=== PATIENT | female | born 1950 | race Caucasian/White ===

== ENCOUNTER 2016-06-16 01:32 | Inpatient (IN) | payer OTHER, MEDICARE ==
[~2016-06-16] VITALS: Ht 165.1 cm; Wt 95.7 kg
[~2016-06-16 01:32] MED LIST: ACCUPRIL40 M1 PO; ALEVE220 MG PO; COLACE100 M1 PO; COUMADIN 3 MG TA3 MG PO; COUMADIN5 M2 PO; DOCUSATE SODIU100 MG PO; FLEXERIL10 MG PO; HYDROCHLOROTHIA25 M1 PO; HYDRODIURIL 2525 MG PO; K-DUR 20MEQ TA20 MEQ PO; MIRALAX17 GM PO; MOTRIN800 MG PO; MULTI-DAY VITA1 EACH PO; MULTIVITAMIN1 TAB PO; OXYCODONE HCL5 M1 PO; PERCOCET 325 MG1 TA2 PO; PERCOCET 5-3251 EACH PO; POTASSIUM CHLO20 ME2 PO; QUINAPRIL40 MG PO; RW; TYLENOL325 M1 PO; VITAMIN D1000 UNIT PO
--- NOTE | 2016-06-16 17:49 | Admission Core Measures ---
Admission Meds I reviewed the following Meds: Current Medications Sig/Naveed Start time Last Medication Dose Stop Time Status Admin Cefazolin Sodium 2,000 MG ONCE 06/16 0000 NR (Kefzol-Ancef Inj) 06/16 2359 Dextrose/Sodium 1,000 ML .[id number] 06/16 174 UNVr Chloride (D5W-1/2 Normal Saline 1000ML) Docusate Sodium 100 MG DAILY NEEDED PRN 06/16 174 UNVr (Colace) Hydrochlorothiazide 25 MG DAILY 06/17 1000 AC (Hydrodiuril) Hydromorphone HCl 2 MG Q4P PRN 06/16 174 UNVr (Dilaudid) Hydromorphone HCl 4 MG Q4P PRN 06/16 174 UNVr (Dilaudid) Lisinopril 40 MG DAILY 06/17 1000 AC (Prinivil) Ondansetron HCl 4 MG Q6P PRN 06/16 174 UNVr (Zofran) Potassium Chloride 20 MEQ DAILY 06/17 1000 AC (K-Dur) Promethazine HCl 12.5 MG Q6P PRN 06/16 174 UNVr (Phenergen) 06/23 174 Ramelteon 8 MG AT BEDTIME NEED.. 06/16 174 UNVr (Rozerem) Warfarin Sodium 5 MG ONCE ONE 06/16 1744 UNVr (Coumadin) 06/16 174 Acute Coronary Syndrome Inclusion Criteria ACS Diagnosis No Inpatient Core Measures LDL Reminder: If No, please order W/I first 24hr of stay Congestive Heart Failure Inclusion Criteria CHF Diagnosis No Cerebrovascular accident Inclusion Criteria CVA/TIA Diagnosis No Inpatient Core Measures Bedside Swallow Eval Reminder: If BSE failed, place ST order Antithrombotic Reminder: Order Antithrombotic Medication by end of day 2 Antithrombotic Reminder: Document Reason Antithrombotic Not ordered by end of day 2 AFIB/Flutter Reminder: If Present, add to problem list AFIB/Flutter Reminder: Order Anticoag Medication for pts with AFIB/Flutter Atherosclerosis Reminder: If Present, add to problem list LDL Reminder: If No, please order W/I first 24hr of stay PT Order Reminder: If No, please order Venous thromboembolism Inpatient Core Measures VTE Risk Factors: Age > 40, Obesity, Surgery VTE Prophylaxis Ordered Inpt Mech & Pharm No Mech VTE prophylaxis d/t No contraindications No VTE Pharm Prophylaxis d/t No contraindications Inclusion Criteria - Per Current guidelines, there needs to be overlap - treatment for the first 5 days of Warfarin therapy. - Parenteral Anticoagulation (IV or SC) needs to be - given along with Warfarin therapy. VTE Diagnosis No VTE Type NONE VTE Confirmed by (Test) NONE Problem List As ranked by this Provider includes Assessment & Plan 1. Osteoarthritis of right knee HOME MEDS Home Med List Hydrochlorothiazide 25 MG TABLET 1 TAB PO DAILY BP (Reported) Potassium Chloride 20 MEQ TAB.ER.PRT 1 TAB PO DAILY SUPPLEMENT (Reported) Quinapril HCl (Accupril) 40 MG TABLET 1 TAB PO BID BP (Reported)
--- NOTE | 2016-06-16 18:18 | Operative Report ---
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 Tourniquet time was 2 hours and 13 minutes Operative Indication: This is a 64-year-old obese lady that had a right total knee arthroplasty performed 4 months ago. At the time her patella dislocated despite a lateral release area we did a medial capsular reefing and the patella was stable following this. However she began dislocating 4 weeks ago. X-rays revealed a lateral dislocation and she was admitted for possible knee component revision versus a Coral osteotomy Operative/Procedure Note Note: After satisfactory spinal anesthesia been obtain the patient's right lower extremity was prepped and draped in usual sterile fashion. She received preoperative antibiotics. A pneumatic tourniquet was used above the knee and leg max was used to support the leg throughout the case. The leg was exsanguinated with a sterile Esmarch. Tourniquet was then inflated to pressure 350 mmHg. The prior incision was used and taken down through skin and subcutaneous tissue. Generous medial and lateral skin flaps were developed. All bleeders were cauterized with the Bovie. A medial parapatellar incision was performed and the patella was dislocated laterally. We inspected the tibial bearing. Patient had slight laxity medially and laterally and it was decided that the patella might be more stable with a larger implant. Yazan Phelan re moved the tibial bearing and a trial reduction was performed using a 16 mm tibial bearing. There was still slight laxity and we proceeded to put in a 19 mm tibial bearing. Despite this tightening of the knee capsule the patella still dislocated laterally in 30 of flexion. Yazan Phelan then performed a generous lateral release. We also removed any scar tissue laterally. Despite this the patella still dislocated easily laterally. It was decided that point to proceed with a Coral osteotomy. The incision was extended distally for an additional 10 cm. The musculature was dissected off of the lateral aspect of the tibial shaft using electrocautery and then with a periosteal elevator. A large elevator was then placed subperiosteally to protect the musculature. A anterior compartment fasciotomy was also performed. A tibial tuberosity pin was placed in a vertical perpendicular fashion into the tibial tuberosity. The tuberosity pin guide was then placed over the pin. The pin guide was placed horizontally in line with the femoral condyles. The 45 cutting guide was then assembled and the cutting block was secured along the aspect of the patella with to break away pins. When the cutting block was positioned in the acceptable angle a collared breakaway pin was inserted. The position of the cutting block was checked several times with the saw blade exit indicator. A sagittal saw was then used to perform the osteotomy. The proximal cuts were then accomplished with a 10 mm sagittal saw. A osteotome was then used to elevate the osteotomy. A periosteal hinge was remaining distally and the graft was easily shifted laterally and anteriorly for a distance of 1.5 cm. Using image intensification 2 cannulated screws were then placed into the graft and good solid fixation was obtained. The images were again checked with the C-arm. The knee was then put through a range of motion and the patella remained centralized. 2 batches of Arthrex quick set cement were then placed along the lateral aspect of the graft. A medial parapatellar incision was closed with 0 Vicryl sutures drain was placed in the lateral gutter after the knee had been copiously irrigated the patient received transamic acid in 2 doses. The tourniquet was released and electrocautery was used to cauterize any bleeding points. The deep tissues were closed with 0 Vicryl and the skin was closed with subcuticular 2-0 Vicryl sutures and then surgical jeanne. Blood loss approximately 150 mL dry sterile dressing was applied over the incision and she was returned to the recovery room in excellent condition Discharge Disposition: PACU
--- NOTE | 2016-06-16 19:36 | NUR ---
PACU NOTE PT ARRIVED TO FLOOR AT THIS TIME FROM PACU, VSS DENIES PAIN AT THIS TIME, A/O X 3 ON 2L 100%, TURNED DOWN TO 1L AT THIS TIME 98%, WILL RECHECK. DENIES NAUSEA AT THIS TIME. ONQ PUMP TO RIGHT KNEE GOING AT 10ML/HR. RUDI WRAP TO RIGHT LEG CD+I, ICE IN PLACE, IMMOBILIZER IN PLACE. ALP APPLIED TO LEFT LEG. SKIN INTACT NO EDEMA, LUNGS CLEAR DRY COUGH, C/O DRY MOUTH, OFFERED ICE AND WATER AT THIS TIME. BURGESS DRAINING CLEAR YELLOW URINE. JPD TO RIGHT KNEE, BLOODY DRAINAGE APPROX 50 CC. STATING NO PAIN CURRENTLY BUT STATES " IM SCARED TO TAKE DILAUDUD IF I DO HAVE PAIN, ROHITH NEVER HAD IT BEFORE" PT STATES THAT SHE HAS TAKEN TYLENOL FOR LAST KNEE REPLACEMENTS WHICH WORKED WELL FOR HER, AND TAKEN PERCOCET ONLY "IF REALLY NEEDED" CALL PLACED TO SURGICAL PA AT THIS TIME TO CHANGE MEDS. ORIENTED TO ROOM AND USE OF CALL MEDINA WILL CONTINUE TO MONITOR
[2016-06-16 19:40] VITALS: BP 136/80
--- NOTE | 2016-06-16 19:48 | PN- Orthopedic ---
Subjective Subjective: Post op check Awake, alert Pain tolerable No nausea Does not want IV narcotics or po dilaudid - only tylenol or percocet Objective Vital Signs and I&Os VSS, afebrile APOLLO: serosang jensen: good output Physical Exam: General: alert and oriented times three Chest: clear anteriorly bilaterally, RRR Abd: soft, good bs Ext: warm, no edema, positive sensate, no calf tenderness Wound: dressed, dry, knee immobilizer in place, on Q in place Current Medications: Current Medications Sig/Naveed Start time Last Medication Dose Route Stop Time Status Admin Acetaminophen 650 MG Q4P PRN 06/16 1944 AC PO Cefazolin Sodium 2,000 MG ONCE 06/16 0000 DC IV 06/16 2359 Dextrose/Sodium 1,000 ML .[id number] 06/16 174 AC Chloride IV Docusate Sodium 100 MG DAILY NEEDED PRN 06/16 174 AC PO Hydrochlorothiazide 25 MG DAILY 06/17 1000 DC PO Hydrochlorothiazide 25 MG DAILY 06/17 1000 AC PO Hydromorphone HCl 2 MG Q4P PRN 06/16 174 DC PO Hydromorphone HCl 4 MG Q4P PRN 06/16 174 DC PO Lisinopril 40 MG DAILY 06/17 1000 DC PO Lisinopril 40 MG DAILY 06/17 1000 AC PO Ondansetron HCl 4 MG Q6P PRN 06/16 174 AC IV Oxycodone/ 1 TAB Q4P PRN 06/16 194 AC Acetaminophen PO Oxycodone/ 2 TAB Q4P PRN 06/16 194 AC Acetaminophen PO Potassium Chloride 20 MEQ DAILY 06/17 1000 DC PO Potassium Chloride 20 MEQ DAILY 06/17 1000 AC PO Promethazine HCl 12.5 MG Q6P PRN 06/16 174 AC IV 06/23 174 Ramelteon 8 MG AT BEDTIME NEED.. 06/16 2200 AC PO Ropivacaine 500 ML ONCE ONE 06/16 1600 DC ON-Q Ball 1 BAG INJ 06/16 1601 Warfarin Sodium 5 MG ONCE ONE 06/16 174 DC PO 06/16 174 Assessment/Plan Assessment/Plan 65 yo female s/p R patella realignment coumadin 5mg ordered for tonight - dvt ppx monitor apollo pain mgmt jensen overnight - dc in am pt may bend to 45/60 degrees passively ambulate with knee immobilizer at all times partial weight bear Core Measures/Miscellaneous Jensen Catheter Date In: 06/16/16 Still Needed? Yes (24 hrs post op) Venous Thromboembolism VTE Risk Factors: Age > 40 VTE Contraindications: No Contraindications VTE Prophylaxis Ordered Inpt: Mech & Pharm VTE Diagnosis: No VTE Type: NONE VTE Confirmed by (Test): NONE Beta Juliocesar Is Beta Juliocesar a Home Med? No Antibiotics Is Patient on Antibiotics? Yes If Yes: prophylaxis (24 hrs post op)
--- NOTE | 2016-06-16 21:07 | NUR ---
BURGESS OUTPUT SO FAR 30-35 ML URINE. CALL PLACED TO SURGERY TO NOTIFY. PT STATED "I HAVENT BEEN DRINKING WATER REALLY", IVF INFUSING AT 75 ML/HR. AWAITING CALL FROM SURGICAL PA
--- NOTE | 2016-06-16 21:11 | NUR ---
PER SURGERY ENCOURAGE PT TO DRINK PO FLUIDS AT THIS TIME AND CONTINUE IVF ORDERED
[2016-06-16 21:14] VITALS: BP 120/60
--- NOTE | 2016-06-16 22:00 | RADIOLOGY REPORT ---
EXAMINATION: XR KNEE, RIGHT CLINICAL INFORMATION: Intraoperative imaging of right knee. COMPARISON: X-ray of the right knee immediately post op 11/10/2015. TECHNIQUE: 8 AP and lateral views of the right knee were obtained during revision of the superior tibia. Imaging was provided for Dr. Ulloa. Fluoroscopy time 0.2 minutes. FINDINGS: The study redemonstrates the prosthetic components of the knee arthroplasty. The hardware appears intact. The study demonstrates placement of 2 wires across the proximal tibia, and then placement of 2 compression screws along the anterior aspect of the proximal tibia. IMPRESSION: 1. Intraoperative x-rays during revision of tibial right knee arthroplasty.
[2016-06-16 22:50] VITALS: BP 124/60
[2016-06-17 01:00] VITALS: BP 126/60
[2016-06-17 05:23] VITALS: BP 120/70
--- NOTE | 2016-06-17 07:54 | PN- Orthopedic ---
See Addendum Subjective Subjective: Patient reporting no acute overnight events. Specifically denies chest pain, shortness of breath and difficulty breathing. Has been tolerating po, had a bout of nausea in the early post op period but that has resolved. Has ON Q in places, is without complaints of pain presently. Has not ambulated. Has jensen catheter in place, has not moved bowels. Objective Vital Signs and I&Os Vital Signs Date Time Temp Pulse Resp B/P Pulse O2 O2 Flow FiO2 Ox Delivery Rate 06/17 0523 97.7 56 20 120/70 96 Room Air 06/17 0100 97.3 67 20 126/60 94 Room Air 06/17 0030 94 Room Air 06/16 2250 97.5 76 20 124/60 95 Room Air 06/16 2114 97.6 85 20 120/60 97 Nasal Cannula 06/16 1940 97.8 78 16 136/80 100 Nasal 2.0L Cannula Intake & Output 06/17 0800 06/17 0000 06/16 1600 06/16 0800 06/16 0000 06/15 1600 Intake Total 750 300 Output Total 440 145 Balance 310 155 Intake, IV 600 Intake, Oral 150 300 Output, 90 Drainage Output, Urine 350 145 Patient 211 lb Weight Physical Exam: General: Alert and oriented x3, no acute distress Cardiac: RRR, s1s2 Pulmonary: Bilateral lung sounds clear to auscultation, has post nasal drip with loose productive cough Abdomen: Non-tender, non-distended Extremities: Moves all extremities, distal sensation intact. Motor 5/5 in plantar and dorsi flexion. Skin warm and well perfused, dp pulses palpable bilaterally, bilateral calves soft and non-tender. Surgical site: Dressing dry and intact. Knee immobilizer in place. PIPE drain holding suction. ON Q in place without evidence of leakage Assessment/Plan Assessment/Plan This is a 65 year old female, pod 1, s/p right knee patellar realignment -D/C jensen -D/C iv fluids -Add guaifenisin as needed for cough -Continue current pain regimen -Coumadin for dvt ppx -F/U am labs -OOB, wbat, ROM limited to 45-60 degrees passive flexion only, immobilizer while ambulating -Dr. Ulloa to see patient today, consider transition to hinged brace -Patient considering d/c today vs tomorrow, on Q to be d/c prior to discharge to assess po pain control -Will d/w attending Core Measures/Miscellaneous Jensen Catheter Date In: 06/16/16 Venous Thromboembolism VTE Risk Factors: Age > 40 VTE Contraindications: No Contraindications VTE Prophylaxis Ordered Inpt: Mech & Pharm VTE Diagnosis: No VTE Type: NONE VTE Confirmed by (Test): NONE Beta Juliocesar Is Beta Juliocesar a Home Med? No Antibiotics Is Patient on Antibiotics? Yes If Yes: prophylaxis (24 hrs post op)
[2016-06-17 14:31] VITALS: BP 120/50
--- NOTE | 2016-06-17 19:27 | PN- Orthopedic ---
Surgical Brief Attending Note Brief Attending Note: Amber is 24 hours status post poly-exchange and Coral osteotomy of her right tibia. She is doing remarkably well. She is comfortable and her vital signs are stable. Neurologically she is intact. She was able to ambulate 100 feet today. Her drain drained 100 mL this shift so we will keep it in until tomorrow. I will plan to see her around noon tomorrow. A C BC and INR were ordered for the morning area if she is comfortable and independent we will discharge her to home tomorrow.
[2016-06-17 22:31] VITALS: BP 118/64
[2016-06-18 06:40] VITALS: BP 110/60
--- NOTE | 2016-06-18 07:48 | PN- Orthopedic ---
Subjective Subjective: Awake, alert pain well controlled ambulated with walker without difficulty Objective Vital Signs and I&Os Vital Signs Date Time Temp Pulse Resp B/P Pulse O2 O2 Flow FiO2 Ox Delivery Rate 06/18 0640 98.6 87 20 110/60 95 Room Air 06/17 2231 98.4 85 20 118/64 96 Room Air 06/17 1431 98.4 91 21 120/50 95 Room Air 06/17 0853 128/70 06/17 0800 Room Air Intake & Output 06/18 0806/18 0000 06/17 1600 06/17 0806/17 0000 06/16 1600 Intake Total 300 350 800 750 300 Output Total 960 1200 590 440 145 Balance -660 -850 210 310 155 Intake, IV 600 Intake, Oral 300 350 800 150 300 Output, 110 90 90 Drainage Output, Urine 850 1200 500 350 145 Patient 211 lb Weight Physical Exam: afebrile, vss apollo 110cc serosang overnight General: alert and oriented times three Chest: clear ant, RRR abd: soft, good bs Ext: warm, no edema, positive sensate, 5/5 HARLAN R foot RLE in knee immobilizer, RUDI wrapped - dry, APOLLO with sersang drainage Assessment/Plan Assessment/Plan 65 yo female pod 2 s/p R patella realignment DR Ulloa to see at noon today APOLLO still with high output Will keep dressing/drain for now - fu with Dr Ulloa recommendations Possible dc later today Core Measures/Miscellaneous Venous Thromboembolism VTE Risk Factors: Age > 40 VTE Contraindications: No Contraindications VTE Prophylaxis Ordered Inpt: Mech & Pharm VTE Diagnosis: No VTE Type: NONE VTE Confirmed by (Test): NONE Beta Juliocesar Is Beta Juliocesar a Home Med? No Antibiotics Is Patient on Antibiotics? No If Yes: prophylaxis (24 hrs post op)
--- NOTE | 2016-06-18 07:55 | Surg Short-stay <48hrs Dis Sum ---
See Addendum Visit Information Visit Dates Admission Date: 06/16/16 Discharge Date: 06/18/16 Surgical Short Stay DC Summary Admission Diagnosis: right patella misalignment Final Diagnosis: same, s/p realignment Procedure(s): poly-exchange and Coral osteotomy of right tibia. See operative report Summary/Significant Findings: Pt underwent surgery by Dr Ulloa She tolerated the procedure well and was brought to recovery in stable condition. Over the next two days she worked with physical therapy and her pain was managed. She was able to ambulate with a walker, her pain was controlled with oral medication and she was managing her knee immobilizer. Her apollo was removed and she was deemed stable for discharge. Condition at Discharge: good Discharge Disposition: home or self care Discharge instructions provided to patient/family: Yes Post discharge follow-up plan: fu with DR Ulloa and PCP within two weeks
[2016-06-18 08:10] LABS: ABSOLUTE BASOPHIL COUNT 0.1 /CUMM (0.0-0.2); ABSOLUTE EOSINOPHIL COUNT 0.1 /CUMM (0.0-0.7); ABSOLUTE GRANULOCYTE CT 5.8 /CUMM (1.4-6.5); ABSOLUTE LYMPH COUNT 1.7 /CUMM (1.2-3.4); ABSOLUTE MONOCYTE COUNT 0.8 /CUMM (0.10-0.60); BASOPHIL % 0.6 % (0.0-2.0); EOSINOPHIL % 0.7 % (0-5); GRANULOCYTE % 69.3 % (42.2-75.2); HEMATOCRIT 29.1 % (37-47); MEAN CORPUSCULAR HGB 28.3 PG (27.0-31.0); MEAN CORPUSCULAR HGB CONC 34.5 G/DL (33.0-37.0); MEAN PLATELET VOLUME 7.7 FL (7.4-10.4); PLATELET COUNT 250 /CUMM (130-400); RED BLOOD CELL CT 3.55 /CUMM (4.20-5.40); WHITE BLOOD CELL COUNT 8.4 /CUMM (4.8-10.8)
[2016-06-18 08:25] LABS: PT 14.6 SEC (9.4-12.5)
--- NOTE | 2016-06-18 13:47 | PN- Orthopedic ---
Surgical Brief Attending Note Brief Attending Note: Amber. Is 48 hours status post Coral osteotomy right knee. She is now independent ambulating. I changed her dressing today incision is clean. The drain has been pulled. Her pain catheter was also removed. She is comfortable on Percocet. She was placed in her hinged brace. She is stable for discharge home. We'll see her back in the office in 2 weeks for suture removal and follow -up x-ray. Discharge meds will be Percocet 1 every 4 hours when necessary for pain. She will also take 5 mg of Coumadin a day and this will be adjusted following her INR tests.
[2016-06-18] MEDS ORDERED: PERCOCET 5-3251 EACH PO (13:50)
[2016-06-18] MEDS ORDERED: COUMADIN5 M2 PO (13:51)
[2016-06-18 15:15] VITALS: BP 128/62
== END 2016-06-18 15:44 | disposition home health service (06) | DRG 517 ==
LOC: STS 01:32 → PACUH 05:09 → 2NA 05:09 → STS 07:00 → 2NA 19:16
PROVIDERS: Nurse Practitioner; ADMIT Orthopaedic Surgery
PROC: 0SW Lower Joints, Revision (ICD-10-PCS; principal; 2016-06-16)
PROC: 0QSD04Z Reposition Right Patella with Internal Fixation Device, Open Approach (ICD-10-PCS; principal; 2016-06-16)
DX: T84.022A Instability of internal right knee prosthesis, initial encounter (principal); I10 Essential (primary) hypertension; E66.9 Obesity, unspecified; Z68.35 Body mass index [BMI] 35.0-35.9, adult
CPT/HCPCS: 2NASP; 87070; 87075; 36415; 73560-RT; 82436; 87086; 97116-GO; 97162-GP; 97530-GO; J0690; J2405; J2550; J2795; J3370; J7042

== ENCOUNTER 2018-01-21 16:42 | Inpatient (IN) | payer OTHER, MEDICARE ==
[~2018-01-21] VITALS: Ht 163.8 cm; Wt 99.3 kg
--- NOTE | 2018-01-21 16:54 | ED CARDIAC/CP/PALPITATIONS ---
History of Present Illness General Chief Complaint: General Adult Stated Complaint: BIBA FOR IRREG HEART BEAT Source: patient, EMS Exam Limitations: no limitations Allergies Coded Allergies: oxycodone (Intermediate, lightheadedness 06/06/16) amlodipine (ANKLE EDEMA 11/07/15) Reconcile Medications Cholecalciferol (Vitamin D3) (Vitamin D) (Unknown Strength) CAPSULE (Unknown Dose) PO DAILY SUPPLEMENT (Reported) Fluticasone Propionate (Flonase Allergy Relief) 50 MCG/ACTUATION SPRAY.SUSP 1- 2 SPRAY NASB AD PRN ALLERGIES (Reported) Hydrochlorothiazide 25 MG TABLET 1 TAB PO DAILY BP (Reported) Multiple Vitamin (Multivitamins) 1 EACH TABLET 1 TAB PO DAILY SUPPLEMENT ( Reported) Potassium Chloride 20 MEQ TAB.ER.PRT 1 TAB PO DAILY SUPPLEMENT (Reported) Quinapril HCl (Accupril) 40 MG TABLET 1 TAB PO BID BP (Reported) Triage Nurses Notes Reviewed? yes Onset: Gradual Duration: hour(s): Timing: single episode today Quality/Severity: moderate HPI: 67YO FEMALE with hx of HTN BIBA to ED complaining of rapid heart rate. PAtient states she felt her heart pounding rapidly at home about 2 hours prior to arrival. Patient began checking her blood pressure and found it to be elevated. She continued to check her blood pressure and it remained elevated so she presented here to the ED. Patient states her palpatations have improved since being here in the ED. She reports feeling slighly dizzy/lightheaded upon arrival and transition from EMS stretcher to ED stretcher, this resolved after seconds. The patient denies chest pain, dyspnea, abdominal pain. (Sara SEO,Leonie Lozada) Vital Signs & Intake/Output Vital Signs & Intake/Output Vital Signs Date Time Temp Pulse Resp B/P B/P Pulse O2 O2 Flow FiO2 Mean Ox Delivery Rate 01/213 97.2 98 16 142/95 96 Room Air 01/21 1917 134 01/21 1843 98.3 112 16 136/80 98 Room Air 01/21 1756 143 171/83 01/21 1706 100 Room Air 01/21 1655 98.6 149 16 169/84 100 Room Air (Geovanna BYNUM,Oziel Vilchis) Past History Travel History Traveled to [place] past 21 day No Medical History Any Pertinent Medical History? see below for history Neurological: NONE EENT: NONE Cardiovascular: hypertension Respiratory: NONE Gastrointestinal: NONE Hepatic: NONE Renal: NONE Musculoskeletal: osteoarthritis Psychiatric: NONE Endocrine: NONE Blood Disorders: NONE Cancer(s): NONE HURRICANE TRACKER/Reproductive: NONE History of MRSA: No History of VRE: No History of CDIFF: No Pneumonia Vaccine: 10/20/15 Influenza Vaccine: 03/01/16 Surgical History Surgical History: CS X 2 LEFT KNEE REPLACEMENT RIGHT KNEE REPLACEMENT BREAST BIOPSIES Psychosocial History Who do you live with Spouse Services at Home None What is your primary language [place]an Family History Hx Contributory? No (Leonie Peralta) Review of Systems Review of Systems Constitutional: Reports: no symptoms. EENTM: Reports: no symptoms. Respiratory: Reports: no symptoms. Cardiovascular: Reports: see HPI. GI: Reports: no symptoms. Genitourinary: Reports: no symptoms. Musculoskeletal: Reports: no symptoms. Skin: Reports: no symptoms. Neurological/Psychological: Reports: no symptoms. Hematologic/Endocrine: Reports: no symptoms. Immunologic/Allergic: Reports: no symptoms. All Other Systems: Reviewed and Negative (Leonie Perlata) Physical Exam Physical Exam General Appearance: well developed/nourished, no apparent distress, alert, awake Head: atraumatic, normal appearance Eyes: Bilateral: normal appearance. Ears, Nose, Throat: hearing grossly normal Neck: normal inspection, supple, full range of motion Respiratory: normal breath sounds, no respiratory distress, lungs clear Cardiovascular: tachycardia, irregularly irregular Peripheral Pulses: 2+ radial (R), 2+ radial (L) Gastrointestinal: normal bowel sounds, soft, non-tender, no organomegaly Back: normal inspection, normal range of motion Extremities: normal inspection Neurologic/Psych: awake, alert, oriented x 3 Skin: intact, normal color, warm/dry Core Measures ACS in differential dx? Yes CVA/TIA Diagnosis No Sepsis Present: No Sepsis Focused Exam Completed? No (Leonie Peralta) Progress Differential Diagnosis: AMI, atrial fibrillation, CHF/pulm edema, costochondritis, hyperthyroid, hyperventilation, myocarditis, pericarditis, pneumonia, PSVT, pulmonary embolism, unstable angina Diagnostic Imaging: Viewed by Me: Radiology Read. Discussed w/RAD: Radiology Read. CXR Impression: PATIENT: GÉNESIS GRAMAJO PRESENT AGE: 67 PATIENT ACCOUNT NO: [id number] : 48 LOCATION: [facility] ORDERING PHYSICIAN: Leonie SEO SERVICE DATE: 01/21/18 EXAM TYPE: RAD - XRY- PORTABLE CHEST XRAY EXAMINATION: CHEST 1 VIEW CLINICAL INFORMATION: Rapid heart rate. COMPARISON: None. TECHNIQUE: An AP view of the chest is provided. FINDINGS : The cardiac silhouette is not enlarged. The mediastinal and hilar contours are unremarkable. There are neither pleural effusions nor pneumothoraces. There are no consolidations. The osseous structures are unremarkable. IMPRESSION: No evidence for acute disease. DICTATED BY: Jaime Garzon MD DATE/TIME DICTATED:1751 X RAY CONSULTANT:ZEB DATE/TIME TRANSCRIBED:01/21/181751 CONFIDENTIAL, DO NOT COPY WITHOUT APPROPRIATE AUTHORIZATION. <Electronically signed in Other Vendor System> SIGNED BY: Jaime Garzon MD 01/21/181756 Initial ED EKG: atrial fibrillation @155bpm Hand-Off Endorsed To: Brian Abad MD Endorsed Time: 1828 Pending: other (admission) (Sara SEO,Leonie Lozada) Plan of Care: Orders Procedure Date/time Status Heart Healthy Diet 01/22 B Active Regular Diet 01/21 D Complete Patient Data 01/21 1929 Active Pathway - chart 01/21 1926 Active House Staff 01/21 1926 Active Code Status 01/21 1926 Active ED Holding Orders 01/21 1911 Active Admit to inpatient 01/21 191 Active Vital Signs 01/21 191 Active Intake & Output 01/21 191 Active Weight 01/21 1818 Active THYROID STIMULATING HORMONE 01/21 1653 Complete TROPONIN LEVEL 01/21 1653 Complete PARTIAL THROMBOPLASTIN TIME 01/21 1653 Complete PROTHROMBIN TIME 01/21 1653 Complete MAGNESIUM 01/21 1653 Complete FREE T4 01/21 1653 Complete D-DIMER 01/21 1653 Complete COMPREHENSIVE METABOLIC PANEL 01/21 1653 Complete CBC WITHOUT DIFFERENTIAL 01/21 1653 Complete B-TYPE NATRIURETIC PEP (BNP) 01/21 1653 Complete EKG 01/21 1643 Active VTE Mechanical Prophylaxis 01/21 UNK Active Telemetry/Real Estate Services Administrator 01/21 UNK Active Current Medications Sig/Naveed Start time Last Medication Dose Stop Time Status Admin Acetaminophen 650 MG Q6P PRN 01/21 1930 AC (Tylenol) Heparin Sodium 25,000 UNIT Q24H 01/21 1815 AC 01/21 (Porcine) 1917 (Heparin) Sodium Chloride 500 ML Laboratory Tests 01/21/18 1700: Anion Gap 13, Estimated GFR > 60, BUN/Creatinine Ratio 18.3, Glucose 106 H, Calcium 9.8, Magnesium 1.8, Total Bilirubin 0.3, AST 24, ALT 30, Alkaline Phosphatase 108, Troponin I < 0.01, Gjz-C-Cyizttojwmj Pept 191 H, Total Protein 6.7, Albumin 4.1, Globulin 2.6, Albumin/Globulin Ratio 1.6, TSH 0.760, Free T4 1.25, PT 11.7, INR 1.07, APTT 26, D-Dimer High Sensitivty 665 H, CBC w Diff NO MAN DIFF REQ, RBC 4.09 L, MCV 84.6, MCH 28.8, MCHC 34.0, RDW 13.9, MPV 7.9, Gran % 74.6, Lymphocytes % 17.5 L, Monocytes % 5.4, Eosinophils % 2.0, Basophils % 0.5, Absolute Granulocytes 6.1, Absolute Lymphocytes 1.4, Absolute Monocytes 0.4, Absolute Eosinophils 0.2, Absolute Basophils 0 EKG and monitor show rapid atrial fibrillation. I recommended IV Cardizem however patient has a reported history of allergy to amlodipine. Allergic reaction reported is leg swelling. I informed the patient that this is an adverse reaction rather than a true allergy. Patient prefers to hold IV Cardizem until we contact her environmental services supervisor. Cardiology has been paged. Labs are pending. Patient has been seen and evaluated by Dr. Austin. Spoke with Dr. toney from cardiology, he states that IV Cardizem is safe for this patient, would not likely cause leg swelling. However patient's rate has been well controlled by 5 mg IV Lopressor, we can also continue IV Lopressor as this has sufficiently controlled her rate. IV heparinization is recommended given her risk factors. He agrees a plan for IV heparin and telemetry admission. Patient's labs show mild hyponatremia and hypokalemia. Given no congestion detected on chest x-ray IV fluids started to treat hyponatremia and patient medicated with potassium for her hypokalemia. The patient was signed out to Dr. Brian Kwan pending hospital admission. (SaraLeonie Yang) (Geovanna BYNUM,Oziel Vilchis) Comments: Patient signed out to me by PA at 7 PM. Patient complaining of new onset palpitations found to be in atrial fibrillation with rapid ventricular response. Patient is followed by environmental services supervisor Dr. Mcmanus. Patient declined to take Cardizem for rate control stating an allergy to calcium channel blockers which was described as lower extremity swelling from amlodipine. Patient was given an intravenous dose of Lopressor resulting in adequate rate control. Property Utilization Manager Dr. Rothman was contacted whom recommended further rate control with beta-blockers as tolerated and use of calcium channel blockers as needed. Patient has an elevated CHADsVASc score for which an intravenous heparin drip was started. Patient's TSH and troponin are normal/negative respectively. Patient is being admitted to the telemetry, anticoagulation, rate control, echocardiogram, and cardiology consultation. (Brian Abad MD) Departure Departure Disposition: STILL A PATIENT Condition: Stable Clinical Impression Primary Impression: Rapid atrial fibrillation Referrals: Mehrdad Crocker MD (PCP/Family) Departure Forms: Customer Survey General Discharge Information (Leonie Peralta) PA/LABOR RELATIONS ANALYST Co-Sign Statement Statement: ED Attending supervision documentation- [x] I saw and evaluated the patient. I have also reviewed all the pertinent lab results and diagnostic results. I agree with the findings and the plan of care as documented in the PA's/LABOR RELATIONS ANALYST's documentation. [] I have reviewed the ED Record and agree with the PA's/LABOR RELATIONS ANALYST's documentation. [] Additions or exceptions (if any) to the PAs/LABOR RELATIONS ANALYST's note and plan are summarized below: [] (Geovanna BYNUM,Oziel Vilchis) Admission Note Spoke With: Lennox Hernandez MD Documentation of Exam: Documentation of any treatments & extenuating circumstances including Concerns Regarding Discharge (functional status, medication knowledge or non-compliance, living conditions, etc.) that warrant an admission rather than observation: * Telemetry monitoring * Anticoagulation * Rate control * Echocardiogram * Cardiology consultation (Brian Abad MD) Critical Care Note Critical Care Note Critical Care Time: 30-74 min (Leonie Peralta)
[2018-01-21] MEDS ORDERED: MULTIVITAMINS1 EAC9 PO (16:59)
[2018-01-21] MEDS ORDERED: FLONASE ALLERG9.9 ML NASB (16:59)
[2018-01-21] MEDS ORDERED: VITAMIN D2000 UNIT PO (16:59)
[2018-01-21 17:09] LABS: ABSOLUTE BASOPHIL COUNT 0 /CUMM (0.0-0.2); ABSOLUTE EOSINOPHIL COUNT 0.2 /CUMM (0.0-0.7); ABSOLUTE GRANULOCYTE CT 6.1 /CUMM (1.4-6.5); ABSOLUTE LYMPH COUNT 1.4 /CUMM (1.2-3.4); ABSOLUTE MONOCYTE COUNT 0.4 /CUMM (0.10-0.60); BASOPHIL % 0.5 % (0.0-2.0); GRANULOCYTE % 74.6 % (42.2-75.2); HEMATOCRIT 34.7 % (37-47); MEAN CORPUSCULAR HGB 28.8 PG (27.0-31.0); MEAN CORPUSCULAR VOLUME 84.6 FL (81.0-99.0); MEAN PLATELET VOLUME 7.9 FL (7.4-10.4); PLATELET COUNT 313 /CUMM (130-400); RBC DISTRIBUTION WIDTH 13.9 % (11.5-14.5); RED BLOOD CELL CT 4.09 /CUMM (4.20-5.40); WHITE BLOOD CELL COUNT 8.1 /CUMM (4.8-10.8)
[2018-01-21 17:18] LABS: PT 11.7 SEC (9.4-12.5); PTT 26 SEC (25-37)
--- NOTE | 2018-01-21 17:57 | RADIOLOGY REPORT ---
EXAMINATION: CHEST 1 VIEW CLINICAL INFORMATION: Rapid heart rate. COMPARISON: None. TECHNIQUE: An AP view of the chest is provided. FINDINGS: The cardiac silhouette is not enlarged. The mediastinal and hilar contours are unremarkable. There are neither pleural effusions nor pneumothoraces. There are no consolidations. The osseous structures are unremarkable. IMPRESSION: No evidence for acute disease.
--- NOTE | 2018-01-21 19:19 | History & Physical ---
Dimitris Wagoner 01/21/181916: General Information and HPI MD Statement: I have seen and personally examined GÉNESIS GRAMAJO and documented this H&P. The patient is a 67 year old F who presented with a patient stated chief complaint of BIBA FOR IRREGULAR HEARTBEAT. Source of Information: patient, family Exam Limitations: no limitations History of Present Illness: 67-year-old female past medical history of hypertension, osteoarthritis, bilateral knee replacement, and breast biopsies who was brought into the emergency department by ambulance for irregular, fast heartbeat. Patient was at home in her usual state of good health cooking an afternoon meal, when she began to have a strange feeling in her chest "like anxiety". She stopped to take her blood pressure and pulse, which were both elevated. She continued to monitor her BP and HR; she denies any chest pain/headaches/fevers/shortness of breath during this time. At around 4pm she experienced an episode of "almost lightheadedness", and checked her blood pressure which was near 200 systolic. At that point she called 911 and was brought to the ED. Upon arrival at the ED she was found to have atrial fibrillation at ~155bpm, and found to have a d-dimer of 665. Allergies/Medications Allergies: Coded Allergies: oxycodone (Intermediate, lightheadedness 06/06/16) amlodipine (ANKLE EDEMA 11/07/15) Compliance With Home Meds: GOOD Past History Travel History Traveled to [place] past 21 day No Medical History Neurological: NONE EENT: NONE Cardiovascular: hypertension Respiratory: NONE Gastrointestinal: NONE Hepatic: NONE Renal: NONE Musculoskeletal: osteoarthritis Psychiatric: NONE Endocrine: NONE Blood Disorders: NONE Cancer(s): NONE [employer]/Reproductive: NONE History of MRSA: No History of VRE: No History of CDIFF: No Pneumonia Vaccine: 10/20/15 Influenza Vaccine: 03/01/16 Surgical History Surgical History: CS X 2 LEFT KNEE REPLACEMENT RIGHT KNEE REPLACEMENT BREAST BIOPSIES Past Family/Social History Family History Relations & Conditions if any FATHER, , Age 80; Cause: Myocardial infarction acute. FH: OH (myocardial infarction) Psychosocial History Services at Home: None Primary Language: Cymraes Smoking Status: Former Smoker ETOH Use: occasional use Illicit Drug Use: denies illicit drug use Living Will? no Functional Ability ADLs Independent: dressing, eating, toileting, bathing. Ambulation: independent, cane (only for parking lots) IADLs Independent: shopping, housework, finances, food prep, telephone, transportation , medication admin. Review of Systems Review of Systems Constitutional: Reports: see HPI. Exam & Diagnostic Data Last 24 Hrs of Vital Signs/I&O Vital Signs Date Time Temp Pulse Resp B/P B/P Pulse O2 O2 Flow FiO2 Mean Ox Delivery Rate 01/21 2231 140/80 01/21 2200 97.7 85 18 96 Room Air 01/21 2043 97.2 98 16 142/95 96 Room Air 01/21 1917 134 01/21 1843 98.3 112 16 136/80 98 Room Air 01/21 1756 143 171/83 01/21 1706 100 Room Air 01/21 1655 98.6 149 16 169/84 100 Room Air Intake & Output 01/22 0800 01/22 0000 01/21 1600 Intake Total 1026 Output Total Balance 1026 Intake, IV 1026 Patient 228 lb Weight Weight Bed scale Measurement Method Physical Exam General Appearance Alert, Oriented X3, Cooperative, No Acute Distress Skin No Rashes, No Breakdown, No Significant Lesion, half-dollar sized hematoma on left forearm; patient endorses unintentional self-inflicted injury Skin Temp/Moisture Exam: Warm/Dry HEENT Atraumatic, PERRLA, EOMI, Mucous Membr. moist/pink Neck Supple, No JVD, No thryomegaly Lymphatic Axillary nl, Cervical nl Cardiovascular Regular Rate, Normal S1, Normal S2, No Murmurs, Gallops, Rubs Lungs Clear to Auscultation, Normal Air Movement Abdomen Normal Bowel Sounds, Soft, No Tenderness, No Hepatospenomegaly Neurological Normal Speech, Strength at 5/5 X4 Ext, Normal Tone, Sensation Intact Extremities No Clubbing, No Cyanosis, No Edema Last 24 Hrs of Labs/Chauncey: Laboratory Tests 01/22/18 0030: Troponin I Pending, APTT Pending 01/21/18 1700: Anion Gap 13, Estimated GFR > 60, BUN/Creatinine Ratio 18.3, Glucose 106 H, Calcium 9.8, Magnesium 1.8, Total Bilirubin 0.3, AST 24, ALT 30, Alkaline Phosphatase 108, Troponin I < 0.01, Gmu-U-Pafmvsuepih Pept 191 H, Total Protein 6.7, Albumin 4.1, Globulin 2.6, Albumin/Globulin Ratio 1.6, TSH 0.760, Free T4 1.25, PT 11.7, INR 1.07, APTT 26, D-Dimer High Sensitivty 665 H, CBC w Diff NO MAN DIFF REQ, RBC 4.09 L, MCV 84.6, MCH 28.8, MCHC 34.0, RDW 13.9, MPV 7.9, Gran % 74.6, Lymphocytes % 17.5 L, Monocytes % 5.4, Eosinophils % 2.0, Basophils % 0.5, Absolute Granulocytes 6.1, Absolute Lymphocytes 1.4, Absolute Monocytes 0.4, Absolute Eosinophils 0.2, Absolute Basophils 0 Diagnostic Data EKG Results Atrial fibrillation @155bpm CXR Results No evidence of acute disease. Assessment/Plan Assessment: 67-year-old female with past medical history of osteoarthritis and hypertension brought in by ambulance for rapid heart rate. Problem list/plan: New onset atrial fibrillation -Follow CBC, BEP in AM -Echocardiogram in AM -CTA negative for PE -Cardiology consult w/ [facility] in morning Hypokalemia -Repleted K orally -Held HCTZ -Repeat BEP in the AM -Check mag in morning as well Hyponatremia -Pt received NS IV -Check urine osmol, spot urine lytes Hypertension -continue home medications -metoprolol, lisinopril DVT prophylaxis: With new onset A. fib, patient is on heparin drip and ALPS Heart healthy diet Patient is full code As Ranked By This Provider Problem List: 1. Rapid atrial fibrillation 2. HTN (hypertension) 3. Osteoarthritis of right knee Core Measures/Misc (02/22) Acute Coronary Syndrome ACS Diagnosis: No Congestive Heart Failure Congestive Heart Failure Diagnosis No Cerebrovascular Accident CVA/TIA Diagnosis: No VTE (View Protocol) VTE Risk Factors Acute Medical Illness No Mechanical VTE Prophylaxis d/t N/A MechProphylax Ordered No VTE Pharm Prophylaxis d/t NA PharmProphylax ordered Sepsis (View protocol) Sepsis Present: No If YES complete Sepsis Event Note If YES complete Sepsis Event Note Andriy Escobar MD 01/22/18 0122: General Information and HPI MD Statement: I have seen and personally examined ROXGÉNESIS Nogueira and documented this H&P. The patient is a 67 year old F who presented with a patient stated chief complaint of palpitations and presyncope. Source of Information: patient, old records Exam Limitations: no limitations History of Present Illness: 67 year old female with PMH of obesity, HTN, osteoarthritis, b/l knee replacements with surgical complications presented with complaints of acute onset palpitations. The patient was in her usual state of health today when around noon while cooking she noticed an unusual sternal sensation that she described like a feeling of anxiety that she felt in her chest instead of her abdomen. She checked her blood pressure which was high at 180s-190s systolic and sat down to rest. She checked her pulse which was ranging from the 90s- 130s. She felt palpitations but describes them as very subtle and denied chest pain. She continued cooking but when she began to feel light headed she decided to call 911 approximately four hours after symptoms onset. She denies nausea, vomiting, diaphoresis, or dyspnea. She drinks at least six cups of coffee daily , quit smoking 35 years ago, doesn't drink alcohol, and denies any cocaine or other stimulants. Her thyroid function is normal. She sees Dr. Mcmanus for cardiology who manages her hypertension. She originally saw him for a preoperative evaluation. She reports a normal echocardiogram and exercise stress test although it sounds suboptimal because she fell on the treadmill and didn't complete the study. FH only notable for OH/CABG in ther father at 80 years old. She takes quinapril, HCTZ, potassium, Vit D, and MVT supplements. She drinks 4-6 20oz bottles of water a day and states her serum sodium is always low usually in the 130s. On arrival to the ED, her blood pressure was elevated to 170/85 and HR was 150s and irregular. She was treated for atrial fibrillation with rapid ventricular response with Metoprolol 5mg IV, 25mg PO, NS x 1L with improved rate control < 110. She also received Zofran 4mg, 40meq potassium and was started on a heparin gtt. CTA was negative for pulmonary embolism. Labs were notable for normal thyroid function, mild anemia, hyponatremia, hypokalemia, and an elevated d-dimer. She was admitted to telemetry for afib with RVR. Allergies/Medications Compliance With Home Meds: GOOD Past History Medical History Cardiovascular: hypertension Surgical History Surgical History: knee replacement Past Family/Social History Psychosocial History Services at Home: None Primary Language: Cymraes Smoking Status: Former Smoker ETOH Use: denies use Illicit Drug Use: denies illicit drug use Functional Ability ADLs Independent: dressing, eating, toileting, bathing. Ambulation: cane Review of Systems Review of Systems Constitutional: Denies: chills, fever. EENTM: Reports: no symptoms. Cardiovascular: Reports: palpitations. Denies: chest pain. Respiratory: Denies: cough, short of breath. GI: Denies: abdominal pain, diarrhea, nausea, vomiting. Genitourinary: Denies: dysuria, frequency. Musculoskeletal: Reports: joint pain. Skin: Reports: no symptoms. Neurological/Psychological: Reports: no symptoms. Hematologic/Endocrine: Reports: bruising. Immunologic/Allergic: Reports: no symptoms. All Other Systems: Reviewed and Negative Exam & Diagnostic Data Last 24 Hrs of Vital Signs/I&O Vital Signs Date Time Temp Pulse Resp B/P B/P Pulse O2 O2 Flow FiO2 Mean Ox Delivery Rate 01/21 2231 140/80 01/21 2200 97.7 85 18 96 Room Air 01/21 2043 97.2 98 16 142/95 96 Room Air 01/21 1917 134 01/21 1843 98.3 112 16 136/80 98 Room Air 01/21 1756 143 171/83 01/21 1706 100 Room Air 01/21 1655 98.6 149 16 169/84 100 Room Air Intake & Output 01/22 0800 01/22 0000 01/21 1600 Intake Total 1026 Output Total Balance 1026 Intake, IV 1026 Patient 103.419 kg Weight Weight Bed scale Measurement Method Physical Exam General Appearance Alert, Oriented X3, Cooperative, No Acute Distress Skin half-dollar sized hematoma on left forearm; patient endorses unintentional self-inflicted injury Cardiovascular Normal S1, Normal S2, No Murmurs, irregularly irregular rhythm, tachycardic Lungs Clear to Auscultation, Normal Air Movement Abdomen Normal Bowel Sounds, Soft, No Tenderness, No Hepatospenomegaly Extremities No Clubbing, No Cyanosis, No Edema, b/l surgical scars over her knees Last 24 Hrs of Labs/Chauncey: Laboratory Tests 01/22/18 0030: Troponin I Pending, PT 12.6 H, INR 1.15, APTT 112 *H 01/21/18 2207: PT Cancelled, INR Cancelled 01/21/18 1700: Anion Gap 13, Estimated GFR > 60, BUN/Creatinine Ratio 18.3, Glucose 106 H, Calcium 9.8, Magnesium 1.8, Total Bilirubin 0.3, AST 24, ALT 30, Alkaline Phosphatase 108, Troponin I < 0.01, Slh-N-Btmxrfbgrpz Pept 191 H, Total Protein 6.7, Albumin 4.1, Globulin 2.6, Albumin/Globulin Ratio 1.6, TSH 0.760, Free T4 1.25, PT 11.7, INR 1.07, APTT 26, D-Dimer High Sensitivty 665 H, CBC w Diff NO MAN DIFF REQ, RBC 4.09 L, MCV 84.6, MCH 28.8, MCHC 34.0, RDW 13.9, MPV 7.9, Gran % 74.6, Lymphocytes % 17.5 L, Monocytes % 5.4, Eosinophils % 2.0, Basophils % 0.5, Absolute Granulocytes 6.1, Absolute Lymphocytes 1.4, Absolute Monocytes 0.4, Absolute Eosinophils 0.2, Absolute Basophils 0 Diagnostic Data EKG Results afib HR [address] changes in V2-V4 CXR Results negative Other Results CTA negative for PE Assessment/Plan Assessment: 67 year old female with PMH of obesity, HTN, osteoarthritis, b/l knee replacements with surgical complications presented with complaints of acute onset palpitations and found to be in new onset atrial fibrillation with rapid ventricular response. Atrial fibrillation with rapid ventricular response: Significant caffeine intake Monitor on telemetry for rate control Check serial troponins and EKGs to evaluate for myocardial ischemia Cardiology consultation Check echocardiogram Thyroid function wnl Chadsvasc of 2 (female/HTN) currently on heparin gtt, titrate to PTT CTA negative for pulmonary embolism Rate control improved with 5mg IV metoprolol + 25mg PO metoprolol x 1 dose Continue metoprolol 25mg po bid HTN: Continue ACEi, started metoprolol Monitor blood pressure, improved with addition of beta blockade after admission Hyponatremia: Hold HCTZ, given 1L NS Check urine and serum osmoles, spot urine electrolytes Appears euvolemic Hypokalemia: Repleted orally Follow up repeat BEP in the morning Heart healthy diet DVT ppx-on heparin gtt Full code As Ranked By This Provider Problem List: 1. Rapid atrial fibrillation 2. HTN (hypertension) Core Measures/Misc (9/17) Acute Coronary Syndrome ACS Diagnosis: No Congestive Heart Failure Congestive Heart Failure Diagnosis No Cerebrovascular Accident CVA/TIA Diagnosis: No VTE (View Protocol) VTE Risk Factors Age>40 No Mechanical VTE Prophylaxis d/t N/A MechProphylax Ordered No VTE Pharm Prophylaxis d/t NA PharmProphylax ordered Sepsis (View protocol) Sepsis Present: No If YES complete Sepsis Event Note If YES complete Sepsis Event Note Lennox Hernandez MD 01/22/18 0416: General Information and HPI Statement: I have seen and personally examined GÉNESIS GRAMAJO and documented this H&P. The patient is a 67 year old F who presented with a patient stated chief complaint of []. Source of Information: patient Allergies/Medications Home Med list Cholecalciferol (Vitamin D3) (Vitamin D) (Unknown Strength) CAPSULE (Unknown Dose) PO DAILY SUPPLEMENT (Reported) Fluticasone Propionate (Flonase Allergy Relief) 50 MCG/ACTUATION SPRAY.SUSP 1- 2 SPRAY NASB AD PRN ALLERGIES (Reported) Hydrochlorothiazide 25 MG TABLET 1 TAB PO DAILY BP (Reported) Multiple Vitamin (Multivitamins) 1 EACH TABLET 1 TAB PO DAILY SUPPLEMENT ( Reported) Potassium Chloride 20 MEQ TAB.ER.PRT 1 TAB PO DAILY SUPPLEMENT (Reported) Quinapril HCl (Accupril) 40 MG TABLET 1 TAB PO BID BP (Reported) Past History Medical History Cardiovascular: hypertension Musculoskeletal: osteoarthritis Past Family/Social History Psychosocial History Smoking Status: Former Smoker ETOH Use: denies use Illicit Drug Use: denies illicit drug use Review of Systems Review of Systems Constitutional: Reports: see HPI. Exam & Diagnostic Data Last 24 Hrs of Vital Signs/I&O Vital Signs Date Time Temp Pulse Resp B/P B/P Pulse O2 O2 Flow FiO2 Mean Ox Delivery Rate 01/21 2231 140/80 01/21 2200 97.7 85 18 96 Room Air 01/21 2043 97.2 98 16 142/95 96 Room Air 01/21 1917 134 01/21 1843 98.3 112 16 136/80 98 Room Air 01/21 1756 143 171/83 01/21 1706 100 Room Air 01/21 1655 98.6 149 16 169/84 100 Room Air Intake & Output 01/22 0800 01/22 0000 01/21 1600 Intake Total 1026 Output Total Balance 1026 Intake, IV 1026 Patient 228 lb Weight Weight Bed scale Measurement Method Physical Exam General Appearance Alert, Oriented X3, Cooperative, No Acute Distress Skin half-dollar sized hematoma on left forearm; patient endorses unintentional self-inflicted injury Skin Temp/Moisture Exam: Warm/Dry Sepsis Skin Exam (color): Normal for Ethnicity HEENT Atraumatic, PERRLA, EOMI, Mucous Membr. moist/pink Neck Supple, No JVD, No thryomegaly Lymphatic Axillary nl, Cervical nl Cardiovascular Normal S1, Normal S2, No Murmurs, irregularly irregular rhythm, tachycardic Lungs Clear to Auscultation, Normal Air Movement Abdomen Normal Bowel Sounds, Soft, No Tenderness, No Hepatospenomegaly Neurological Normal Speech Extremities b/l surgical scars over her knees Sepsis Peripheral Pulse Location: Dorsalis Pedis Sepsis Peripheral Pulse Exam: Normal Sepsis Cap Refill Exam: <2 Sec Last 24 Hrs of Labs/Chauncey: Laboratory Tests 01/22/18 021: Urine Osmolality 149 L 01/22/185: Urinalysis LIGHT H, Urine Color YEL, Urine Clarity HAZY H, Urine pH 7.0, Ur Specific Zortman 1.010, Urine Protein NEG, Urine Ketones NEG, Urine Nitrite NEG, Urine Bilirubin NEG, Urine Urobilinogen 0.2, Ur Leukocyte Esterase TRACE H, Ur Microscopic SEDIMENT EXAMINED, Urine RBC 1-3, Urine WBC 1-3 H, Ur Epithelial Cells FEW, Urine Bacteria FEW H, Urine Hemoglobin SMALL H, Urine Glucose NEG 01/22/18 0215: Ur Random Creatinine 13.7, Ur Random Sodium 27 L, Ur Random Potassium 10.4, Fraction Sodium Excret 0.9 01/22/18 0030: Serum Osmolality 277 L, Troponin I 0.05, PT 12.6 H, INR 1.15, APTT 112 *H 01/21/18 2207: PT Cancelled, INR Cancelled 01/21/18 1700: Anion Gap 13, Estimated GFR > 60, BUN/Creatinine Ratio 18.3, Glucose 106 H, Calcium 9.8, Magnesium 1.8, Total Bilirubin 0.3, AST 24, ALT 30, Alkaline Phosphatase 108, Troponin I < 0.01, Gyu-S-Bwdeqzeviyo Pept 191 H, Total Protein 6.7, Albumin 4.1, Globulin 2.6, Albumin/Globulin Ratio 1.6, TSH 0.760, Free T4 1.25, PT 11.7, INR 1.07, APTT 26, D-Dimer High Sensitivty 665 H, CBC w Diff NO MAN DIFF REQ, RBC 4.09 L, MCV 84.6, MCH 28.8, MCHC 34.0, RDW 13.9, MPV 7.9, Gran % 74.6, Lymphocytes % 17.5 L, Monocytes % 5.4, Eosinophils % 2.0, Basophils % 0.5, Absolute Granulocytes 6.1, Absolute Lymphocytes 1.4, Absolute Monocytes 0.4, Absolute Eosinophils 0.2, Absolute Basophils 0 Microbiology 01/22 0215 URINE ROUT: Urine Culture - RECD Core Measures/Misc (02/22) Sepsis (View protocol) If YES complete Sepsis Event Note If YES complete Sepsis Event Note Attending MD Review Statement Attending Statement Attending MD Statement: examined this patient, discuss w/resident/PA/BIZTALK ARCHITECT, agreed w/resident/PA/BIZTALK ARCHITECT, reviewed EMR data (avail), amended to note Attending Assessment/Plan: This patient is a 67 year old female with a significant past medical history for obesity, HTN, osteoarthritis, b/l knee replacements with surgical complications presented with complaints of acute onset palpitations. The patient was in her usual state of health today when around noon while cooking she noticed an unusual sternal sensation that she described like a feeling of anxiety that she felt in her chest instead of her abdomen. She checked her blood pressure which was high at 180s-190s systolic and sat down to rest. She checked her pulse which was ranging from the 90s-130s. She continued cooking but when she began to feel light headed she decided to call 911 approximately four hours after symptoms onset. While in the ED her blood pressure was elevated to 170/85 and HR was 150s and irregularly irregular. She was treated for atrial fibrillation with rapid ventricular response with Metoprolol 5mg IV, 25mg PO, NS x 1L with improved rate control < 110. She also received Zofran 4mg, 40meq potassium and was started on a heparin gtt. CTA was negative for pulmonary embolism. Labs were notable for normal thyroid function, mild anemia, hyponatremia, hypokalemia , and an elevated d-dimer. She was admitted to telemetry for afib with RVR.
[2018-01-21 22:31] VITALS: BP 140/80
[2018-01-22 01:29] LABS: PT 12.6 SEC (9.4-12.5)
[2018-01-22 01:30] LABS: PTT 112 SEC (25-37)
--- NOTE | 2018-01-22 01:33 | CT SCAN REPORT ---
EXAMINATION: CT ANGIOGRAM OF THE CHEST WITH AND WITHOUT CONTRAST (CT PULMONARY ANGIOGRAM FOR PE) CLINICAL INFORMATION: New onset atrial fibrillation. COMPARISON: Radiograph from 01/21/2018. TECHNIQUE: Prior to contrast administration, noncontrast localization images were obtained. Subsequently, multidetector volumetric imaging was performed from the thoracic inlet to below the diaphragms following the administration of 95 mL Optiray 320 intravenous contrast. No contrast reaction reported. Sagittal, coronal, and MIP oblique sagittal reformatted images were obtained on the CT workstation, uploaded to PACS, and reviewed. Total exam dose-length product 563 mGy-cm. FINDINGS: QUALITY OF STUDY/CONTRAST BOLUS: Satisfactory PULMONARY ARTERIES: No central or segmental pulmonary emboli. THORACIC AORTA: No aneurysm or dissection. LUNG: The central airways are patent. Mild centrilobular and paraseptal emphysema greatest in the upper lobes. No focal consolidation. Minimal bibasilar atelectasis. There is a 0.5 cm nodule along the left major fissure, series 2 image 221. PLEURA: No pleural effusion or pneumothorax. MEDIASTINUM: Normal heart size. No pericardial effusion. No hilar or mediastinal lymphadenopathy. No evidence of septal bowing or right heart strain. CHEST WALL/AXILLA: No axillary or internal mammary lymphadenopathy. OSSEOUS STRUCTURES: No acute or suspicious osseous abnormality. Mild multilevel degenerative changes in the spine. UPPER ABDOMEN: Nonspecific calcifications associated with the anterior cortex of the left kidney. Cyst within the left lobe of the liver. No reflux of contrast into the hepatic veins to suggest elevated right heart pressures. IMPRESSION: 1. No pulmonary embolism. No acute intrathoracic abnormality. 2. Mild emphysema. 3. 0.5 cm nodule along the left major fissure. Consider 12 month follow-up chest CT. VTE: negative
[2018-01-22 06:57] VITALS: BP 116/70
--- NOTE | 2018-01-22 07:20 | PN- Housestaff ---
Sourav Robertson 01/22/18 0719: Subjective Follow-up For: New onset Afib Subjective: Patient seen and examined lying in bed. Occasionally feels a light fluttering in her chest. She was Afib 84-98 overnight. She has no new complaints otherwise. Review of Systems Constitutional: Reports: see HPI. Objective Last 24 Hrs of Vital Signs/I&O Vital Signs Date Time Temp Pulse Resp B/P B/P Pulse O2 O2 Flow FiO2 Mean Ox Delivery Rate 01/22 1443 98.1 110 17 102/62 94 Room Air 01/22 0831 96 124/72 01/22 0831 96 124/72 01/22 0657 98.2 69 16 116/70 97 Room Air 01/21 2231 140/80 01/21 2200 97.7 85 18 96 Room Air 01/21 2043 97.2 98 16 142/95 96 Room Air Intake & Output 01/22 1600 01/22 0800 01/22 0000 Intake Total 681.3 261.6 1026 Output Total 600 Balance 681.3 -338.4 1026 Intake, IV 181.3 141.6 1026 Intake, Oral 500 120 Output, Urine 600 Patient 219 lb 228 lb 228 lb Weight Weight Bed scale Bed scale Measurement Method Physical Exam General Appearance: Alert, Oriented X3, Cooperative, No Acute Distress HEENT: Atraumatic, EOMI Neck: Supple Cardiovascular: Regular Rate, Normal S1, Normal S2 Lungs: Clear to Auscultation Abdomen: Normal Bowel Sounds, Soft, No Tenderness Neurological: Normal Speech Current Medications: Current Medications Sig/Naveed Start time Last Medication Dose Route Stop Time Status Admin Acetaminophen 650 MG Q6P PRN 01/21 1930 AC PO Apixaban 5 MG BID 01/22 1253 AC 01/22 PO 1406 Heparin Sodium 0 .STK-MED ONE 01/22 1108 DC (Porcine) .ROUTE Heparin Sodium 7,755 UNIT ONCE ONE 01/22 1050 DC 01/22 (Porcine) IV 01/22 1051 1119 Heparin Sodium 25,000 UNIT Q24H 01/21 1815 DC 01/21 (Porcine) IV 1917 Sodium Chloride 500 ML Lisinopril 10 MG DAILY 01/22 0900 AC 01/22 PO 0831 Metoprolol Tartrate 25 MG BID 01/22 0900 AC 01/22 PO 0831 Patient Medication 1 ED ONE ONE 01/22 1500 DC Teaching ED 01/22 1501 Potassium Chloride 20 MEQ DAILY 01/22 0900 AC 01/22 PO 0831 Potassium Chloride 0 .STK-MED ONE 01/22 0207 DC PO Potassium Chloride 40 MEQ ONCE ONE 01/22 0145 DC 01/22 PO 01/22 0146 0209 Last 24 Hrs of Lab/Chauncey Results Last 24 Hrs of Labs/Mics: Laboratory Tests 01/22/18 1730: APTT Cancelled 01/22/18 0830: APTT 44 H 01/22/18 0615: Anion Gap 8, Estimated GFR > 60, BUN/Creatinine Ratio 13.3, Magnesium 2.1, Troponin I 0.05, CBC w Diff NO MAN DIFF REQ, RBC 3.61 L, MCV 84.6, MCH 29.0, MCHC 34.3, RDW 13.9, MPV 8.5, Gran % 49.7, Lymphocytes % 39.8, Monocytes % 8.0, Eosinophils % 1.8, Basophils % 0.7, Absolute Granulocytes 2.7, Absolute Lymphocytes 2.1, Absolute Monocytes 0.4, Absolute Eosinophils 0.1, Absolute Basophils 0 01/22/18 021: Urine Osmolality 149 L 01/22/18214: Urinalysis LIGHT H, Urine Color YEL, Urine Clarity HAZY H, Urine pH 7.0, Ur Specific [place] 1.010, Urine Protein NEG, Urine Ketones NEG, Urine Nitrite NEG, Urine Bilirubin NEG, Urine Urobilinogen 0.2, Ur Leukocyte Esterase TRACE H, Ur Microscopic SEDIMENT EXAMINED, Urine RBC 1-3, Urine WBC 1-3 H, Ur Epithelial Cells FEW, Urine Bacteria FEW H, Urine Hemoglobin SMALL H, Urine Glucose NEG 01/22/18214: Ur Random Creatinine 13.7, Ur Random Sodium 27 L, Ur Random Potassium 10.4, Fraction Sodium Excret 0.9 01/22/18 0030: Serum Osmolality 277 L, Troponin I 0.05, PT 12.6 H, INR 1.15, APTT 112 *H 01/21/187: PT Cancelled, INR Cancelled Microbiology 01/22 215 URINE ROUT: Urine Culture - RECD Assessment/Plan Assessment: 67 year old female with PMH of obesity, HTN, osteoarthritis, b/l knee replacements with surgical complications presented with complaints of acute onset palpitations. In the ED, her blood pressure was 170/85 and HR was 150s and irregular. She was treated for atrial fibrillation with rapid ventricular response with Metoprolol 5mg IV, 25mg PO, NS x 1L with improved rate control < 110. She also received Zofran 4mg, 40meq potassium and was started on a heparin gtt. CTA was negative for pulmonary embolism. Labs were notable for normal thyroid function, mild anemia, hyponatremia, hypokalemia, and an elevated d- dimer. She was admitted to telemetry for afib with RVR. Cardiology saw her and recommended 5 mg eliquis BID because her PBPFM2Lfbi is 3. We will continue this regimen as the rate control appears to help her symptoms. Per cardiology, patient can follow-up in the office with Dr. Mcmanus, and a KAMRAN/ cardioversion can be done as an outpatient. Plan: #New onset Afib - Start Eliquis 5 mg BID - DC heparin - Continue Metoprolol 25 mg Hyponatremia: - 127 -> 133 (resolving) - Consider NS if falls again Hypokalemia: - Resolved 3.1 -> 4.1 - Decrease K Dur Hypertension: - Lisinopril 10 mg PO daily #DVT ppx #Heart healthy diet #Full code Problem List: 1. Rapid atrial fibrillation Pain Ratin Pain Location: NA Pain Goal: Remain pain free Pain Plan: Per pathway Tomorrow's Labs & Rationales: None Osmel BYNUM,Chikis 01/22/18 1006: Attending MD Review Statement Attending Statement Attending MD Statement: examined this patient, discuss w/resident/PA/MARKETING AND PROMOTIONS MANAGER, agreed w/resident/PA/MARKETING AND PROMOTIONS MANAGER, discussed with family, reviewed EMR data (avail), discussed with nursing, discussed with case mgmt, reviewed images Attending Assessment/Plan: 67-year-old female past medical history of hypertension, emphysema and obesity here with new onset rapid atrial fibrillation. She is on p.o. metoprolol which is helping with the rate control and because of her chads vascular has been started on IV heparin. No CT evidence of PE, no obvious hypothyroidism. Will defer to cardiology in terms of oral anticoagulation.
[2018-01-22 08:03] LABS: ABSOLUTE BASOPHIL COUNT 0 /CUMM (0.0-0.2); ABSOLUTE EOSINOPHIL COUNT 0.1 /CUMM (0.0-0.7); ABSOLUTE GRANULOCYTE CT 2.7 /CUMM (1.4-6.5); ABSOLUTE LYMPH COUNT 2.1 /CUMM (1.2-3.4); ABSOLUTE MONOCYTE COUNT 0.4 /CUMM (0.10-0.60); BASOPHIL % 0.7 % (0.0-2.0); EOSINOPHIL % 1.8 % (0-5); GRANULOCYTE % 49.7 % (42.2-75.2); HEMATOCRIT 30.5 % (37-47); MEAN CORPUSCULAR HGB CONC 34.3 G/DL (33.0-37.0); MEAN CORPUSCULAR VOLUME 84.6 FL (81.0-99.0); MEAN PLATELET VOLUME 8.5 FL (7.4-10.4); PLATELET COUNT 272 /CUMM (130-400); RBC DISTRIBUTION WIDTH 13.9 % (11.5-14.5); RED BLOOD CELL CT 3.61 /CUMM (4.20-5.40); WHITE BLOOD CELL COUNT 5.4 /CUMM (4.8-10.8)
[2018-01-22 09:03] LABS: PTT 44 SEC (25-37)
--- NOTE | 2018-01-22 09:31 | ECHOCARDIOGRAM REPORT ---
GÉNESIS GRAMAJO Age: 67 : 1950 Gender: F Exam Date: 01/22/2018 08:29 Exam Location: [place] Ht (in): 64 Wt (lb): 228 BSA: 2.21 BP: 140 / 80 Ordering Physician: Dimitris Wagoner MD Referring Physician: Dimitris Wagoner MD Technologist: Tong Renteria [facility] Room Number: 185-1 Indications: Paroxysmal atrial fibrillation Rhythm: Atrial fibrillation Technical Quality: fair FINDINGS Left Ventricle Normal global left ventricular size, wall thickness, systolic function with no obvious regional wall motion abnormalities. Normal left ventricular ejection fraction visually estimated at 60-65 %. Right Ventricle Right ventricle not well visualized. Right Atrium Right atrium not well visualized. Left Atrium Normal left atrial size. Mitral Valve Structurally normal mitral valve. No mitral stenosis. There is at least mild mitral regurgitation. Aortic Valve Aortic valve not well visualized, grossly normal. No aortic stenosis. No aortic regurgitation. Tricuspid Valve Right ventricular systolic pressure estimated at 33 mmHg. Pulmonic Valve Pulmonic valve not well visualized. Pericardium There is a small anterior echo free space. This may be a small loculated anterior pericardial effusion or a pericardial fat pad. Great Vessels Aortic root and proximal ascending aorta not well visualized, grossly normal. CONCLUSIONS Normal global left ventricular size, wall thickness, systolic function with no obvious regional wall motion abnormalities. Normal left ventricular ejection fraction visually estimated at 60-65 %. Structurally normal mitral valve. No mitral stenosis. There is at least mild mitral regurgitation. There is a small anterior echo free space. This may be a small loculated anterior pericardial effusion or a pericardial fat pad. Dr. Brian Rothman (Electronically Signed) Final Date: 22 January 2018 09:30 MEASUREMENTS (Male / Female) Normal Values 2D ECHO LV Diastolic Diameter PLAX 3.8 cm 4.2 - 5.9 / 3.9 - 5.3 cm LV Systolic Diameter PLAX 2.9 cm 2.1 - 4.0 cm LV Fractional Shortening PLAX 23.7 % 25 - 46 % LV Ejection Fraction 2D Teich 48.0 % IVS Diastolic Thickness 1.1 cm LVPW Diastolic Thickness 1.1 cm LV Relative Wall Thickness 0.6 LA Systolic Diameter LX 3.7 cm 3.0 - 4.0 / 2.7 - 3.8 cm LV Ejection Fraction MOD BP 57.1 % >= 55 % LV Cardiac Index MOD BP 1171.6 cm/min LV Diastolic Length 4C 6.8 cm 6.9 - 10.3 cm LV Diastolic Area 4C 20.7 cm LV Diastolic Volume MOD 4C 52.0 cm LV Ejection Fraction MOD 4C 61.5 % LV Stroke Volume MOD 4C 32.0 cm LV Cardiac Index MOD 4C 1041.4 cm/min LV Systolic Length 4C 6.6 cm LV Systolic Area 4C 12.6 cm LV Systolic Volume MOD 4C 20.0 cm LV Ejection Fraction MOD 2C 52.1 % LV Cardiac Index MOD 2C 1204.1 cm/min LV Diastolic Volume 4C AL 53.7 cm 85 - 139 / 69 - 109 cm LV Systolic Volume 4C AL 20.6 cm LV Ejection Fraction 4C AL 61.7 % LV Stroke Volume 4C AL 33.1 cm LV Cardiac Index 4C AL 1078.8 cm/min LV Ejection Fraction 2C AL 54.1 % LV Cardiac Index 2C AL 1249.7 cm/min DOPPLER LVOT Peak Velocity 131.0 cm/s LVOT Peak Gradient 6.9 mmHg Mitral E Point Velocity 123.0 cm/s MV Deceleration Time 176.0 ms TR Peak Velocity 274.0 cm/s TR Peak Gradient 30.0 mmHg
--- NOTE | 2018-01-22 09:56 | PN- Student ---
Subjective Subjective: 67-year-old female with PMH of HTN, osteoarthritis, bilateral knee replacement presented to ED after an acute episode of high BP 180-190 systolic, fast HR 90- 130 and lightheadedness. EKG showed Afib 155 on admission which was treated with rate control Metoprolol and IV heparin. Hospital day 1: Overnight, environmental monitoring technician showed Afib 84-98. Patient was seen and interviewed at bed side. Her daughter was present. Patient looked comfortable, composed and no acute distress. There was no overnight events, no major complaints from patient. She denied SOB, cough, palpitation, headache, chest pain. Current Medications Sig/Naveed Start time Last Medication Dose Route Stop Time Status Admin Acetaminophen 650 MG Q6P PRN 01/21 1930 AC PO Heparin Sodium 0 .STK-MED ONE 01/21 1827 DC (Porcine) .ROUTE Heparin Sodium 4,000 UNIT ONCE ONE 01/21 181 DC 01/21 (Porcine) IV 01/21 Heparin Sodium 25,000 UNIT Q24H 01/21 1815 AC 01/21 (Porcine) IV 191 Sodium Chloride 500 ML Lisinopril 10 MG DAILY 01/22 0900 AC 01/22 PO 0831 Metoprolol Tartrate 25 MG BID 01/22 0900 AC 01/22 PO 0831 Metoprolol Tartrate 0 .STK-MED ONE 01/21 191 DC PO Metoprolol Tartrate 25 MG ONCE ONE 01/21 1900 DC 01/21 PO 01/21 190 191 Metoprolol Tartrate 0 .STK-MED ONE 01/21 1749 DC IV Metoprolol Tartrate 5 MG ONCE ONE 01/21 1745 DC 01/21 IV 01/21 1746 1756 Ondansetron HCl 4 MG ONCE ONE 01/21 1800 DC 01/21 IV 01/21 1801 1800 Ondansetron HCl 0 .STK-MED ONE 01/21 1800 DC .ROUTE Potassium Chloride 20 MEQ DAILY 01/22 0900 AC 01/22 PO 0831 Potassium Chloride 0 .STK-MED ONE 01/22 0207 DC PO Potassium Chloride 40 MEQ ONCE ONE 01/22 0145 DC 01/22 PO 01/22 014 0209 Potassium Chloride 0 .STK-MED ONE 01/21 1827 DC PO Potassium Chloride 40 MEQ ONCE ONE 01/21 181 DC 01/21 PO 081815 Sodium Chloride 1,000 ML BOLUS ONE 01/21 1815 DC 01/21 IV 01/21 Allergies: NKA Objective Objective: Vital Signs Date Time Temp Pulse Resp B/P B/P Pulse O2 O2 Flow FiO2 Mean Ox Delivery Rate 01/22 0831 96 124/72 01/22 0831 96 124/72 01/22 0657 98.2 69 16 116/70 97 Room Air 01/21 2231 140/80 01/21 2200 97.7 85 18 96 Room Air 01/21 2043 97.2 98 16 142/95 96 Room Air 01/21 1917 134 01/21 1843 98.3 112 16 136/80 98 Room Air 01/21 1756 143 171/83 01/21 1706 100 Room Air 01/21 1655 98.6 149 16 169/84 100 Room Air Intake & Output 01/22 1600 01/22 0800 01/22 0000 Intake Total 261.6 1026 Output Total 600 Balance -338.4 1026 Intake, IV 141.6 1026 Intake, Oral 120 Output, Urine 600 Patient 228 lb 228 lb Weight Weight Bed scale Bed scale Measurement Method Physical exam: - Patient was oriented to Time, Person and Place, coorporative, no acute distress. - HEENT: NC/AT, EOMI. - Cardio: irregular fast heart rate. - Lungs: CTA bilaterally. - Abdomen: no tenderness, soft, no guarding, no rigidity. Results Results: Laboratory Tests 01/22/18 0830: APTT 44 H 01/22/18 0615: Anion Gap 8, Estimated GFR > 60, BUN/Creatinine Ratio 13.3, Magnesium 2.1, Troponin I 0.05, CBC w Diff NO MAN DIFF REQ, RBC 3.61 L, MCV 84.6, MCH 29.0, MCHC 34.3, RDW 13.9, MPV 8.5, Gran % 49.7, Lymphocytes % 39.8, Monocytes % 8.0, Eosinophils % 1.8, Basophils % 0.7, Absolute Granulocytes 2.7, Absolute Lymphocytes 2.1, Absolute Monocytes 0.4, Absolute Eosinophils 0.1, Absolute Basophils 0 01/22/18 0215: Urine Osmolality 149 L 01/22/18 0215: Urinalysis LIGHT H, Urine Color YEL, Urine Clarity HAZY H, Urine pH 7.0, Ur Specific [place] 1.010, Urine Protein NEG, Urine Ketones NEG, Urine Nitrite NEG, Urine Bilirubin NEG, Urine Urobilinogen 0.2, Ur Leukocyte Esterase TRACE H, Ur Microscopic SEDIMENT EXAMINED, Urine RBC 1-3, Urine WBC 1-3 H, Ur Epithelial Cells FEW, Urine Bacteria FEW H, Urine Hemoglobin SMALL H, Urine Glucose NEG 01/22/18 0215: Ur Random Creatinine 13.7, Ur Random Sodium 27 L, Ur Random Potassium 10.4, Fraction Sodium Excret 0.9 01/22/18 0030: Serum Osmolality 277 L, Troponin I 0.05, PT 12.6 H, INR 1.15, APTT 112 *H 01/21/18 2207: PT Cancelled, INR Cancelled 01/21/18 1700: Anion Gap 13, Estimated GFR > 60, BUN/Creatinine Ratio 18.3, Glucose 106 H, Calcium 9.8, Magnesium 1.8, Total Bilirubin 0.3, AST 24, ALT 30, Alkaline Phosphatase 108, Troponin I < 0.01, Eqg-[id number] Pept 191 H, Total Protein 6.7, Albumin 4.1, Globulin 2.6, Albumin/Globulin Ratio 1.6, TSH 0.760, Free T4 1.25, PT 11.7, INR 1.07, APTT 26, D-Dimer High Sensitivty 665 H, CBC w Diff NO MAN DIFF REQ, RBC 4.09 L, MCV 84.6, MCH 28.8, MCHC 34.0, RDW 13.9, MPV 7.9, Gran % 74.6, Lymphocytes % 17.5 L, Monocytes % 5.4, Eosinophils % 2.0, Basophils % 0.5, Absolute Granulocytes 6.1, Absolute Lymphocytes 1.4, Absolute Monocytes 0.4, Absolute Eosinophils 0.2, Absolute Basophils 0 Microbiology 01/22 215 URINE ROUT: Urine Culture - RECD Imaging: - CXR: unremarkable. - CTA: no evidence of DVT - Echo: Normal global left ventricular size, wall thickness, systolic function with no obvious regional wall motion abnormalities. Normal left ventricular ejection fraction visually estimated at 60-65 %. Structurally normal mitral valve. No mitral stenosis. There is at least mild mitral regurgitation. There is a small anterior echo free space. This may be a small loculated anterior pericardial effusion or a pericardial fat pad. - Troponin came back negative. Assessment/Plan Assessment: Summary: 67-year-old female with PMH of HTN, osteoarthritis, bilateral knee replacement presented to ED after an acute episode of high BP 180-190 systolic, fast HR 90- 130 and lightheadedness. EKG showed Afib 155 on admission which was treated with rate control Metoprolol and IV heparin. Labs shwed hypokalemia, hyponatremia, high D dimer, high pro-BNP, and negative troponin. Echo showed normal LV with EF 60-65%, moderate mitral regurg and mild pericardial effusion. Problem list: - New onset A fib - Hyponatremia - Hypokalemia - Hypertension - Osteoarthritis Plan: Per cadio note aprreciated: - Start Eliquis 5 mg PO BID, DC IV Heparin drip (QPKPM3horq of 3) - Metoprolol 25 mg PO BID - Follow up with Dr. Mcmanus for KAMRAN/cardioversion as outpatient. Hyponatremia: - Normal saline IV Hypokalemia: - Resolved based on lab today at 4.1 after K orally repleted at 20 Meq PO daily. Hypertension: - Lisinopril 10 mg PO daily #DVT ppx with Alps #Heart healthy diet #Full code
--- NOTE | 2018-01-22 12:11 | Cons- Cardiology ---
General Information and HPI Consulting Request Date of Consult: 01/22/18 Requested By: Chikis Bolivar MD Reason for Consult: atrial fibrillation Source of Information: patient, family Exam Limitations: no limitations History of Present Illness: 67-year-old female past medical history hypertension, arthritis status post knee replacement presented with a sensation of being aware of her heart beating fast, and mild lightheadedness. Patient was found to be in atrial fibrillation admitted to the hospital. Patient denies chest pain, palpitations, dyspnea at rest or exertion, PND/orthopnea, lower extremity swelling. Patient denies recent decline in exercise tolerance. Patient denies any bleeding history in the past. Allergies/Medications Allergies: Coded Allergies: oxycodone (Intermediate, lightheadedness 06/06/16) amlodipine (ANKLE EDEMA 11/07/15) Home Med List: Cholecalciferol (Vitamin D3) (Vitamin D) (Unknown Strength) CAPSULE (Unknown Dose) PO DAILY SUPPLEMENT (Reported) Fluticasone Propionate (Flonase Allergy Relief) 50 MCG/ACTUATION SPRAY.SUSP 1- 2 SPRAY NASB AD PRN ALLERGIES (Reported) Hydrochlorothiazide 25 MG TABLET 1 TAB PO DAILY BP (Reported) Multiple Vitamin (Multivitamins) 1 EACH TABLET 1 TAB PO DAILY SUPPLEMENT ( Reported) Potassium Chloride 20 MEQ TAB.ER.PRT 1 TAB PO DAILY SUPPLEMENT (Reported) Quinapril HCl (Accupril) 40 MG TABLET 1 TAB PO BID BP (Reported) Current Medications: Current Medications Sig/Naveed Start time Last Medication Dose Route Stop Time Status Admin Acetaminophen 650 MG Q6P PRN 01/21 1930 AC PO Heparin Sodium 0 .STK-MED ONE 01/22 1108 DC (Porcine) .ROUTE Heparin Sodium 7,755 UNIT ONCE ONE 01/22 1050 DC 01/22 (Porcine) IV 01/22 1051 1119 Heparin Sodium 0 .STK-MED ONE 01/21 1827 DC (Porcine) .ROUTE Heparin Sodium 4,000 UNIT ONCE ONE 01/21 1815 DC 01/21 (Porcine) IV 01/22 1816 1910 Heparin Sodium 25,000 UNIT Q24H 01/21 1815 AC 01/21 (Porcine) IV 191 Sodium Chloride 500 ML Lisinopril 10 MG DAILY 01/22 09 AC 01/22 PO 0831 Metoprolol Tartrate 25 MG BID 01/22 0900 AC 01/22 PO 0831 Metoprolol Tartrate 0 .STK-MED ONE 01/21 1918 DC PO Metoprolol Tartrate 25 MG ONCE ONE 01/21 1900 DC 01/21 PO 01/21 190 191 Metoprolol Tartrate 0 .STK-MED ONE 01/21 1749 DC IV Metoprolol Tartrate 5 MG ONCE ONE 01/21 1745 DC 01/21 IV 01/21 1746 1756 Ondansetron HCl 4 MG ONCE ONE 01/21 1800 DC 01/21 IV 01/21 1801 1800 Ondansetron HCl 0 .STK-MED ONE 01/21 1800 DC .ROUTE Potassium Chloride 20 MEQ DAILY 01/22 0900 AC 01/22 PO 0831 Potassium Chloride 0 .STK-MED ONE 01/22 0207 DC PO Potassium Chloride 40 MEQ ONCE ONE 01/22 0145 DC 01/22 PO 01/22 0146 0209 Potassium Chloride 0 .STK-MED ONE 01/21 1827 DC PO Potassium Chloride 40 MEQ ONCE ONE 01/21 1815 DC 01/21 PO 01/21 181 191 Sodium Chloride 1,000 ML BOLUS ONE 01/21 1815 DC 01/21 IV 01/21 2014 191 Review of Systems Review of Systems: As per HPI. Otherwise a 10 point review of systems is negative. Past History Travel History Traveled to [place] past 21 day No Medical History Neurological: NONE EENT: NONE Cardiovascular: hypertension Respiratory: NONE Gastrointestinal: NONE Hepatic: NONE Renal: NONE Musculoskeletal: osteoarthritis Psychiatric: NONE Endocrine: NONE Blood Disorders: NONE Cancer(s): NONE BOOKKEEPING MANAGER/Reproductive: NONE Surgical History Surgical History: knee replacement Family History Relations & Conditions If Any: FATHER, , Age 80; Cause: Myocardial infarction acute. FH: MD (myocardial infarction) Psychosocial History Services at Home: None Primary Language: Tamazight Smoking Status: Former Smoker ETOH Use: denies use Illicit Drug Use: denies illicit drug use Living Will? no Functional Ability ADLs Independent: dressing, eating, toileting, bathing. Ambulation: cane IADLs Independent: shopping, housework, finances, food prep, telephone, transportation , medication admin. Exam & Diagnostic Data Vital Signs and I&O Vital Signs Date Time Temp Pulse Resp B/P B/P Pulse O2 O2 Flow FiO2 Mean Ox Delivery Rate 01/22 831 96 124/72 01/22 0831 96 124/72 08/17 0657 98.2 69 16 116/70 97 Room Air 01/21 2231 140/80 01/21 2200 97.7 85 18 96 Room Air 01/21 2043 97.2 98 16 142/95 96 Room Air 01/21 1917 134 01/21 1843 98.3 112 16 136/80 98 Room Air 01/21 1756 143 171/83 01/21 1706 100 Room Air 01/21 1655 98.6 149 16 169/84 100 Room Air Intake & Output 01/22 1600 01/22 0800 01/22 0000 01/21 1600 01/21 0801/21 0000 Intake Total 261.6 1026 Output Total 600 Balance -338.4 1026 Intake, IV 141.6 1026 Intake, Oral 120 Output, Urine 600 Patient 103.419 kg 103.419 kg Weight Weight Bed scale Bed scale Measurement Method Physical Exam: General: no apparent distress HEENT: NCAT, NO JVD Heart: s1s2, irregular rhythm, no MRG Lungs: CTA b/l Abd: soft, nt Ext: no peripheral edema Labs/Chauncey Results: Laboratory Tests 01/22 01/22 01/22 0830 0615 0215 Chemistry Sodium (137 - 145 mmol/L) 133 L Potassium (3.5 - 5.1 mmol/L) 4.1 Chloride (98 - 107 mmol/L) 98 Carbon Dioxide (22 - 30 mmol/L) 27 Anion Gap (5 - 16) 8 BUN (7 - 17 mg/dL) 8 Creatinine (0.5 - 1.0 mg/dL) 0.6 Estimated GFR (>60 ml/min) > 60 BUN/Creatinine Ratio (7 - 25 %) 13.3 Magnesium (1.6 - 2.3 mg/dL) 2.1 Troponin I (< 0.11 ng/ml) 0.05 Coagulation APTT (25 - 37 SEC) 44 H Hematology CBC w Diff NO MAN DIFF REQ WBC (4.8 - 10.8 /CUMM) 5.4 RBC (4.20 - 5.40 /CUMM) 3.61 L Hgb (12.0 - 16.0 G/DL) 10.5 L Hct (37 - 47 %) 30.5 L MCV (81.0 - 99.0 FL) 84.6 MCH (27.0 - 31.0 PG) 29.0 MCHC (33.0 - 37.0 G/DL) 34.3 RDW (11.5 - 14.5 %) 13.9 Plt Count (130 - 400 /CUMM) 272 MPV (7.4 - 10.4 FL) 8.5 Gran % (42.2 - 75.2 %) 49.7 Lymphocytes % (20.5 - 51.1 %) 39.8 Monocytes % (1.7 - 9.3 %) 8.0 Eosinophils % (0 - 5 %) 1.8 Basophils % (0.0 - 2.0 %) 0.7 Absolute Granulocytes (1.4 - 6.5 /CUMM) 2.7 Absolute Lymphocytes (1.2 - 3.4 /CUMM) 2.1 Absolute Monocytes (0.10 - 0.60 /CUMM) 0.4 Absolute Eosinophils (0.0 - 0.7 /CUMM) 0.1 Absolute Basophils (0.0 - 0.2 /CUMM) 0 Urines Urine Osmolality (300 - 1000 MOSM/KG) 149 L 01/22 01/22 01/22 0215 0215 0030 Chemistry Serum Osmolality (285 - 295 MOSM/KG) 277 L Troponin I (< 0.11 ng/ml) 0.05 Coagulation PT (9.4 - 12.5 SEC) 12.6 H INR (0.90 - 1.19) 1.15 APTT (25 - 37 SEC) 112 *H Urines Urinalysis LIGHT H Urine Color (YEL,AMB,STR) YEL Urine Clarity (CLEAR) HAZY H Urine pH (5.0 - 8.0) 7.0 Ur Specific [place] (1.001 - 1.035) 1.010 Urine Protein (NEG,<30 MG/DL) NEG Urine Ketones (NEG) NEG Urine Nitrite (NEG) NEG Urine Bilirubin (NEG) NEG Urine Urobilinogen (0.1 - 1.0 EU/dl) 0.2 Ur Leukocyte Esterase (NEG) TRACE H Ur Microscopic SEDIMENT EXAMINED Urine RBC (0 - 5 /HPF) 1-3 Urine WBC (0 - 2 /HPF) 1-3 H Ur Epithelial Cells (NONE,FEW) FEW Urine Bacteria (NEG/NONE) FEW H Urine Hemoglobin (NEG) SMALL H Ur Random Creatinine (mg/dL) 13.7 Ur Random Sodium (30 - 90 mmol/L) 27 L Ur Random Potassium (mmol/L) 10.4 Fraction Sodium Excret (<1% %) 0.9 Urine Glucose (N MG/DL) NEG 01/21 01/21 2207 1700 Chemistry Sodium (137 - 145 mmol/L) 127 L Potassium (3.5 - 5.1 mmol/L) 3.1 L Chloride (98 - 107 mmol/L) 89 L Carbon Dioxide (22 - 30 mmol/L) 25 Anion Gap (5 - 16) 13 BUN (7 - 17 mg/dL) 11 Creatinine (0.5 - 1.0 mg/dL) 0.6 Estimated GFR (>60 ml/min) > 60 BUN/Creatinine Ratio (7 - 25 %) 18.3 Glucose (65 - 99 mg/dL) 106 H Calcium (8.4 - 10.2 mg/dL) 9.8 Magnesium (1.6 - 2.3 mg/dL) 1.8 Total Bilirubin (0.2 - 1.3 mg/dL) 0.3 AST (14 - 36 U/L) 24 ALT (9 - 52 U/L) 30 Alkaline Phosphatase (<127 U/L) 108 Troponin I (< 0.11 ng/ml) < 0.01 [id number] Pept (<125 pg/mL) 191 H Total Protein (6.3 - 8.2 g/dL) 6.7 Albumin (3.5 - 5.0 g/dL) 4.1 Globulin (1.9 - 4.2 gm/dL) 2.6 Albumin/Globulin Ratio (1.1 - 2.2 %) 1.6 TSH (0.270 - 4.200 uIU/mL) 0.760 Free T4 (0.78 - 2.44 ng/dL) 1.25 Coagulation PT (9.4 - 12.5 SEC) Cancelled 11.7 INR (0.90 - 1.19) Cancelled 1.07 APTT (25 - 37 SEC) 26 D-Dimer High Sensitivty (0 - 243 ng/ml) 665 H Hematology CBC w Diff NO MAN DIFF REQ WBC (4.8 - 10.8 /CUMM) 8.1 RBC (4.20 - 5.40 /CUMM) 4.09 L Hgb (12.0 - 16.0 G/DL) 11.8 L Hct (37 - 47 %) 34.7 L MCV (81.0 - 99.0 FL) 84.6 MCH (27.0 - 31.0 PG) 28.8 MCHC (33.0 - 37.0 G/DL) 34.0 RDW (11.5 - 14.5 %) 13.9 Plt Count (130 - 400 /CUMM) 313 MPV (7.4 - 10.4 FL) 7.9 Gran % (42.2 - 75.2 %) 74.6 Lymphocytes % (20.5 - 51.1 %) 17.5 L Monocytes % (1.7 - 9.3 %) 5.4 Eosinophils % (0 - 5 %) 2.0 Basophils % (0.0 - 2.0 %) 0.5 Absolute Granulocytes (1.4 - 6.5 /CUMM) 6.1 Absolute Lymphocytes (1.2 - 3.4 /CUMM) 1.4 Absolute Monocytes (0.10 - 0.60 /CUMM) 0.4 Absolute Eosinophils (0.0 - 0.7 /CUMM) 0.2 Absolute Basophils (0.0 - 0.2 /CUMM) 0 Diagnostic Data EKG Results Personally reviewed, atrial fibrillation, no ST/T abnormality CXR Results No evidence for acute disease. Other Results CTA chest: 1. No pulmonary embolism. No acute intrathoracic abnormality. 2. Mild emphysema. 3. 0.5 cm nodule along the left major fissure. Consider 12 month follow-up chest CT. telemetry personally reviewed: Atrial fibrillation, ventricular rate in the 90s bpm TTE: Normal global left ventricular size, wall thickness, systolic function with no obvious regional wall motion abnormalities. Normal left ventricular ejection fraction visually estimated at 60-65 %. Structurally normal mitral valve. No mitral stenosis. There is at least mild mitral regurgitation. There is a small anterior echo free space. This may be a small loculated anterior pericardial effusion or a pericardial fat pad. Assessment/Plan Assessment/Plan 1. Newly diagnosed atrial fibrillation 2. Hypertension Patient remains in atrial fibrillation, however she is not in RVR, and is asymptomatic. Blood pressure is stable. Thyroid function studies normal. CTA chest negative for PE. Echocardiogram shows normal LV function with at least mild mitral regurgitation but no mitral stenosis. [id number] is 3. Full dose anticoagulation is indicated. At this time would start Eliquis 5 mg p.o. twice daily. Continue with metoprolol. Upon discharge metoprolol succinate 50 mg p.o. daily would be reasonable. Beta-rick can be titrated upward as an outpatient. After extensive conversation of risks and benefits, patient prefers to think about the possibility of KAMRAN/cardioversion. The patient can follow-up in the office with Dr. Mcmanus, and a KAMRAN/cardioversion can be done as an outpatient. Thank you for involving [facility] in the care of your patient Consult Acknowledgment - Thank you for your consult request.
[2018-01-22] MEDS ORDERED: ELIQUIS5 M1 PO (13:23)
[2018-01-22] MEDS ORDERED: METOPROLOL TART25 M1 PO (13:23)
--- NOTE | 2018-01-22 13:30 | Patient Discharge Instructions ---
Discharge Instructions General Discharge Information You were seen/treated for: New Onset Atrial Fibrillation Watch for these problems: Please return to the ER in case of any chest pain, palpitations, shortness of breath or lightheadedness/dizziness Special Instructions: Please follow-up with your PCP and it infrastructure architect within a week after discharge. We have started him on 2 new medications, please take them as directed. Diet Continue normal diet: Yes Recommended Diet: Heart Healthy Activity Full Activity/No Limits: Yes Activity Self Limited: Yes Acute Coronary Syndrome Inclusion Criteria At DC or during hospital stay patient has or had the following: ACS DIAGNOSIS No Discharge Core Measures Meds if any: Prescribed or Continued at Discharge Meds if any: NOT Prescribed or Continued at Discharge Congestive Heart Failure Inclusion Criteria At DC or during hospital stay patient has or had the following: CHF DIAGNOSIS No Discharge Core Measures Meds if any: Prescribed or Continued at Discharge Meds if any: NOT Prescribed or Continued at Discharge Cerebrovascular accident Inclusion Criteria At DC or during hospital stay patient has or had the following: CVA/TIA Diagnosis No Discharge Core Measures Meds if any: Prescribed or Continued at Discharge Meds if any: NOT Prescribed or Continued at Discharge Venous thromboembolism Inclusion Criteria VTE Diagnosis No VTE Type NONE VTE Confirmed by (Test) CT CHEST ANGIOGRAM Discharge Core Measures - Per Current guidelines, there needs to be overlap - treatment for the first 5 days of Warfarin therapy. - If discharged on Warfarin prior to 5 days of - overlap therapy, the patient will need to be - assessed for post discharge needs including - *Post discharge parental anticoagulation - *Warfarin and/or parental anticoagulation education - *Follow up date to check INR post discharge At least 5 days overlap therapy as Inpatient No Meds if any: Prescribed or Continued at Discharge Note: Overlap Therapy is Warfarin and Anticoagulant Meds if any: NOT Prescribed or Continued at Discharge
[2018-01-22 14:43] VITALS: BP 102/62
[2018-01-22 22:48] VITALS: BP 106/64
[2018-01-23 06:23] VITALS: BP 122/76
[2018-01-23 08:22] VITALS: BP 118/64
--- NOTE | 2018-01-23 08:46 | PN- Housestaff ---
Lida Terrelljavy 01/23/18 0846: Subjective Follow-up For: New onset atrial fibrillation Subjective: No acute events overnight, afebrile. Patient has no complaint of today, states she is feeling better requesting to go home. Patient has history of high caffeine intake, discussed the need to cut down on caffeine intake for patient. Denies chest pain, palpitations, shortness of breath, fever, night sweats, chills. Review of Systems Constitutional: Reports: see HPI. Objective Last 24 Hrs of Vital Signs/I&O Vital Signs Date Time Temp Pulse Resp B/P B/P Pulse O2 O2 Flow FiO2 Mean Ox Delivery Rate 01/23 0822 109 118/64 01/23 0821 109 118/64 01/23 0623 98.2 96 20 122/76 97 Room Air 01/22 2248 98.4 88 18 106/64 95 Room Air 01/22 2059 94 18 110/70 01/22 1443 98.1 110 17 102/62 94 Room Air Intake & Output 01/23 1600 01/23 0800 01/23 0000 Intake Total 120 120 Output Total Balance 120 120 Intake, Oral 120 120 Physical Exam General Appearance: Alert, Oriented X3, Cooperative Cardiovascular: IRREGULAR HEART RATE Lungs: Clear to Auscultation, Normal Air Movement Assessment/Plan Assessment: 67 year old female with PMH of obesity, HTN, osteoarthritis, b/l knee replacements with surgical complications presented with complaints of acute onset palpitations. In the ED, her blood pressure was 170/85 and HR was 150s and irregular. She was treated for atrial fibrillation with rapid ventricular response with Metoprolol 5mg IV, 25mg PO, NS x 1L with improved rate control < 110. She also received Zofran 4mg, 40meq potassium and was started on a heparin gtt. CTA was negative for pulmonary embolism. Labs were notable for normal thyroid function, mild anemia, hyponatremia, hypokalemia, and an elevated d- dimer. She was admitted to telemetry for afib with RVR. Cardiology saw her and recommended 5 mg eliquis BID because her [id number] is 3. We will continue this regimen as the rate control appears to help her symptoms. Per cardiology, patient can follow-up in the office with Dr. Mcmanus, and a KAMRAN/ cardioversion can be done as an outpatient. Plan: #New onset Afib - continue Eliquis 5 mg BID - DC heparin - Continue Metoprolol 25 mg Hyponatremia: - 127 -> 133 (resolving) - Consider NS if falls again Hypokalemia: - Resolved 3.1 -> 4.1 - Decrease K Dur Hypertension: - Lisinopril 10 mg PO daily #DVT ppx #Heart healthy diet #Full code Discharged patient home today, sent home with Eliquis 5 mg, metoprolol succinate 50 mg. Discussed with patient the need to decrease caffeine intake, as could be the source of atrial fibrillation. Discussed with patient the need for KAMRAN cardioversion in the future discussed benefits and side effects. Directed patient to follow with PCP and cardiology in 1-2 weeks. Problem List: 1. Rapid atrial fibrillation Pain Ratin Pain Location: n/a Pain Goal: Remain pain free Pain Plan: n/a Tomorrow's Labs & Rationales: none Codi BYNUM,Amir 01/23/18 1139: Attending MD Review Statement Attending Statement Attending MD Statement: examined this patient, discuss w/resident/PA/SALES PROMOTER, agreed w/resident/PA/SALES PROMOTER, discussed with family, reviewed EMR data (avail), discussed with nursing Attending Assessment/Plan: Pt was seen and evaluated. Chart reviewed. Currently reports feeling better. No SOB or CP, wants to go home today --rate controlled on current meds --advised to cut back on caffeine --f/u with Cards as oupt --D/C home today
[2018-01-23] MEDS ORDERED: METOPROLOL TART25 M1 PO ×2 (11:28→12:25)
[2018-01-23] MEDS ORDERED: ELIQUIS5 M1 PO (12:25)
[2018-01-23] MEDS ORDERED: METOPROLOL SUCC50 M2 PO (12:27)
--- NOTE | 2018-01-23 19:36 | Discharge Summary ---
Visit Information Visit Dates Admission Date: 01/21/18 Discharge Date: 01/23/18 Hospital Course Course Attending Physician: Osmel BYNUM,Chikis Robert Primary Care Physician: Rico BYNUM,[place] Hospital Course: 67 year old female with PMH of obesity, HTN, osteoarthritis, b/l knee replacements with surgical complications presented with complaints of acute onset palpitations and lightheadedness. In the ED, her blood pressure was 170/85 and HR was 150s and irregular. She was treated for atrial fibrillation with rapid ventricular response with Metoprolol 5mg IV, 25mg PO, NS x 1L with improved rate control < 110. She also received Zofran 4mg, 40meq potassium and was started on a heparin gtt. CTA was negative for pulmonary embolism. Labs were notable for normal thyroid function, mild anemia, hyponatremia, hypokalemia , and an elevated d-dimer. She was admitted to telemetry for afib with RVR. Cardiology saw her and recommended 5 mg eliquis BID because her [id number] is 3 based on her age, weight, and kidney function. She was rate controlled on metoprolol 25mg BID. We will continue this regimen as the rate control appears to help her symptoms. Imaging was not impressive for other etiologies to her symptoms. Per cardiology, patient can follow-up in the office with Dr. Mcmanus, and a KAMRAN/cardioversion can be done as an outpatient. Patient had transient hypokalemia during her stay, and her K was repleted at 20 mEq. She had no more episodes of lightheadness. Patient was stable upon discharge. A 12 month follow up of her chest CT is recommended. Echocardiogram 01/22/18 Normal global left ventricular size, wall thickness, systolic function with no obvious regional wall motion abnormalities. Normal left ventricular ejection fraction visually estimated at 60-65 %. Structurally normal mitral valve. No mitral stenosis. There is at least mild mitral regurgitation. There is a small anterior echo free space. This may be a small loculated anterior pericardial effusion or a pericardial fat pad. Chest CTA 01/21/18 IMPRESSION: 1. No pulmonary embolism. No acute intrathoracic abnormality. 2. Mild emphysema. 3. 0.5 cm nodule along the left major fissure. Consider 12 month follow-up chest CT. CXR 01/21/18 IMPRESSION: No evidence for acute disease. Allergies: Coded Allergies: oxycodone (Intermediate, lightheadedness 06/06/16) amlodipine (ANKLE EDEMA 11/07/15) Disposition Summary Disposition Principal Diagnosis: Afib Additional Diagnosis: None Discharge Disposition: home or self care Discharge Instructions General Discharge Information Code Status: Full Code Patient's Diet: Heart healthy Patient's Activity: self limited Follow-Up Instructions/Appts: Please follow-up with your PCP (regarding CT results and management of Afib) and wool tamper (management of Afib) within a week after discharge. We have started her on 2 new medications, please take them as directed. Medications at Discharge Discharge Medications: Continue taking these medications: Quinapril HCl (Accupril) 40 MG TABLET 1 Tablet ORAL TWICE DAILY Comments: Last Taken: 01/23/18 Time: 8:30 AM LISINOPRIL GIVEN SUBSTITUTE Hydrochlorothiazide (Hydrochlorothiazide) 25 MG TABLET 1 Tablet ORAL DAILY Qty = 90 Comments: NOT GIVEN Potassium Chloride (Potassium Chloride) 20 MEQ TAB.ER.PRT 1 Tablet ORAL DAILY Qty = 90 Comments: Last Taken: 01/23/18 Time: 8:30 AM Fluticasone Propionate (Flonase Allergy Relief) 50 MCG/ACTUATION SPRAY.SUSP 1-2 [place] Both sides of nose As Directed as needed for ALLERGIES Comments: NOT GIVEN Multiple Vitamin (Multivitamins) 1 EACH TABLET 1 Tablet ORAL DAILY Comments: NOT GIVEN Cholecalciferol (Vitamin D3) (Vitamin D) (Unknown Strength) CAPSULE Unknown Dose ORAL DAILY Comments: NOT GIVEN Start taking the following new medications: Apixaban (Eliquis) 5 MG TABLET 1 Tablet ORAL TWICE DAILY Qty = 60 No Refills Instructions: . Comments: Last Taken: 01/23/18 Time: 8:30 AM Metoprolol Succinate (Metoprolol Succinate) 50 MG TAB.ER.24H 1 Tablet ORAL DAILY Qty = 30 No Refills Comments: Last Taken: 01/23/18 Time: 8:30 AM
== END 2018-01-23 13:05 | DRG 309 ==
LOC: ERH 16:42 → ERHI 19:11 → 1NO 19:11 → ENRESERV 19:51 → ENTRNSPT 21:38 → EDTRNSPTSTS 21:49 → EDTRNSPT 21:49 → 1NO 21:50 → CMPTRNSPT 22:08 → 1NO 01-22 08:15 → ENPENDDIS 01-23 13:15 → ENTRNSPT 01-23 13:20 → EDTRNSPT 01-23 13:32 → EDTRNSPTSTS 01-23 13:32 → CMPTRNSPT 01-23 13:50
PROVIDERS: General Practice; Physician Assistant; Preventive Medicine Public Health & General Preventive Medicine
DX: I48.91 Unspecified atrial fibrillation (principal); E87.1 Hypo-osmolality and hyponatremia; I10 Essential (primary) hypertension; E87.6 Hypokalemia; E66.9 Obesity, unspecified; Z68.37 Body mass index [BMI] 37.0-37.9, adult; D64.9 Anemia, unspecified; Z87.891 Personal history of nicotine dependence; Z96.653 Presence of artificial knee joint, bilateral; Z88.8 Allergy status to other drugs, medicaments and biological substances; Z88.5 Allergy status to narcotic agent
CPT/HCPCS: 1NSP; 84133; 84300; 36592; 71045; 81001; 82436; 82570; 87086; 93005; 93010; 93306; 96374; 96375; 99291; J1644; J2405